=== PATIENT | female | born 1945 | race Caucasian/White ===

== ENCOUNTER → 2019-03-25 | Outpatient (CLI) | payer MEDICARE ==
[2019-03-25 14:34] LABS: HCT 36.5 % (34.0-46.0); HGB 12.3 gm/dL (11.4-16.0); MCH 29.5 pg (25.0-35.0); MCHC 33.8 g/dL (31.0-37.0); MCV 87.3 fL (80.0-100.0); Mean Platelet Volume 7.5; Platelet Count 222 k/uL (150-450); RBC 4.18 m/uL (3.80-5.40); RDW 14.6 % (11.5-15.5); WBC 5.3 k/uL (3.8-10.6)
[2019-03-25 14:40] LABS: African American GFR (CKD) >90 (>60 ml/min/1.73 sqM); Anion Gap 10 mmol/L; Blood Urea Nitrogen 22 mg/dL (7-17); Carbon Dioxide 25 mmol/L (22-30); Chloride 106 mmol/L (98-107); Potassium 4.7 mmol/L (3.5-5.1); Sodium 141 mmol/L (137-145)
== END | disposition home or self-care (01) ==
LOC: LABPAT 13:24
PROVIDERS: ATTEND Internal Medicine Interventional Cardiology
DX: Z01.812 Encounter for preprocedural laboratory examination (principal); Q21.1 Atrial septal defect
CPT/HCPCS: 36415; 80051; 82565; 84520; 85027

== ENCOUNTER 2019-04-13 09:53 | Day surgery (SDC) | payer MEDICARE, OTHER ==
[2019-04-06 09:29] VITALS: BMI 28.3
[~2019-04-13 09:53] MED LIST: SODIUM CHLORIDE 0.9% 1,000 ML in EMPTY BAG 1 BAG IV ONE
[2019-04-13] MEDS ORDERED: MIDAZOLAM (PF) 2 MG/2 ML VIAL IV ONE (13:15)
[2019-04-13] MEDS ORDERED: LIDOCAINE 1% INJ 10MG/ML (20 ML MDV) SQ ONE (13:16)
[2019-04-13] MEDS ORDERED: HEPARIN SODIUM 1,000 UN/ML (10ML VL) IV ONE (13:23)
[2019-04-13] MEDS ORDERED: ceFAZolin 1,000 MG VIAL IV ONE (13:36)
[2019-04-13] MEDS ORDERED: CLOPIDOGREL 75 MG TAB PO ONE (15:04)
[2019-04-13] MEDS ORDERED: ASPIRIN 325 MG TAB PO ONE (15:04)
[2019-04-13] MEDS ORDERED: TERIPARATIDE SQ SCH (15:15)
[2019-04-13] MEDS ORDERED: SODIUM CHLORIDE 0.9% 1,000 ML IV SCH (15:15)
[2019-04-13] MEDS: CARVEDILOL 6.25 MG TAB PO SCH (16:04)
--- NOTE | 2019-04-13 17:40 | LTR ---
DATE OF SERVICE: April 13, [address] Mesa: Ms. Audelia Lou underwent successful percutaneous closure of atrial septal defect with an excellent results and without any complication. I want to thank you for allowing us to participate in her care. Sincerely, SHAWNEE / IJN: [id number] /
--- NOTE | 2019-04-13 17:40 | CC ---
CARDIAC CATHETERIZATION REPORT DATE OF SERVICE: April 13, 2019 PERFORMING PHYSICIAN: Danie Ko MD, shaker out. PROCEDURE PERFORMED: 1. Successful percutaneous closure of secundum atrial septal defect using 8 mm Amplatzer atrial septal occluder with excellent results and without any residual shunt. 2. Intracardiac echocardiogram imaging. 3. Right atrial angiogram. INDICATION: This is a 73-year-old female patient who was diagnosed recently with cardiomegaly on chest x-ray. Subsequently, she underwent an echocardiogram which revealed right heart enlargement. After that, the patient did undergo a transesophageal echocardiogram which revealed atrial septal defect with evidence of bidirectional shunt. Because of that, she was scheduled today to undergo an ASD closure. APPROACH: Right common femoral vein. COMPLICATION: None. SEDATION: Level of sedation: Moderate with a sedation length of 95 minutes. PROCEDURE DESCRIPTION: After obtaining an informed consent, the patient was brought to the cardiac orthodontic laboratory technician. The right common femoral vein was cannulated twice using micropuncture technique under ultrasound guidance, the micropuncture wire passed easily then I placed two 8-Micronesian sheaths in the right common femoral vein. At that point, anticoagulation was initiated using heparin and the patient was given weight-based heparin with continuous CT monitoring throughout the procedure. After that I did intracardiac echocardiogram imaging where the catheter was advanced under fluoroscopy guidance from the right common femoral vein all the way to the right atrium where I did interrogate the interatrial septum using color-flow Doppler. After that I crossed the ASD using 035 J-wire with multipurpose catheter. The wire was advanced all the way to the left upper pulmonary vein. After that, I did exchange my 0.035 wire into an Amplatzer stiff wire using the multipurpose catheter. After that, I did balloon the interatrial septum to assess the size of the device, which was about 5 mm. Because of that I decided to place 8 mm device. The device was prepped under saline carefully to eliminate every bubble and after that the I did exchange my short 8-Micronesian sheath into the Shuttle sheath over and where the sheath was advanced all the way across the interatrial septum into the left atrium. After that, the wire and dilator of the sheath were removed. After that, I did deploy the atrial septal device where I deployed initially the left atrial occluder and after that, the right atrial occluder. After interrogated the device using color- flow Doppler with also doing pulling on the cable to make sure the device is still, I did decide to release the device. The device was released under fluoroscopy guidance. I did interrogate the device again with color-flow Doppler and there was no residual shunt. The procedure was completed without any complication. POSTPROCEDURE MANAGEMENT: 1. Dual anti-platelet therapy. 2. Risk factors modifications. 3. Follow up with the patient. SHAWNEE / ABIGAIL: [id number] /
[2019-04-13] MEDS: FAMOTIDINE 20 MG TAB PO SCH (20:04)
[2019-04-13] MEDS ORDERED: OXYBUTYNIN XL 5 MG TAB.ER.24 PO SCH (21:00)
[2019-04-13] MEDS ORDERED: PRAVASTATIN SODIUM 20 MG TAB PO SCH (21:00)
[2019-04-13] MEDS ORDERED: CARVEDILOL 6.25 MG TAB PO SCH (21:00)
[2019-04-14] MEDS ORDERED: LEVOTHYROXINE 75 MCG TAB PO SCH (06:30)
[2019-04-14] MEDS: CARVEDILOL 6.25 MG TAB PO SCH (06:40)
[2019-04-14 08:30] LABS: ALT 10 U/L (9-52); AST 21 U/L (14-36); African American GFR (CKD) >90 (>60 ml/min/1.73 sqM); Albumin 3.8 g/dL (3.5-5.0); Alkaline Phosphatase 79 U/L (38-126); Anion Gap 8 mmol/L; Blood Urea Nitrogen 20 mg/dL (7-17); Carbon Dioxide 26 mmol/L (22-30); Chloride 104 mmol/L (98-107); Glucose 162 mg/dL (74-99); Potassium 4.5 mmol/L (3.5-5.1); Sodium 138 mmol/L (137-145); Total Bilirubin 0.4 mg/dL (0.2-1.3); Total Protein 6.9 g/dL (6.3-8.2)
[2019-04-14] MEDS: FAMOTIDINE 20 MG TAB PO SCH (08:45)
[2019-04-14] MEDS ORDERED: CLOPIDOGREL 75 MG TAB PO SCH (09:00)
[2019-04-14] MEDS ORDERED: CALCIUM CARB-VIT D 500MG-200UN 1 EACH TAB PO SCH (09:00)
[2019-04-14] MEDS ORDERED: MULTIVITAMINS, THERA 1 EACH TAB PO SCH (09:00)
[2019-04-14] MEDS ORDERED: ASPIRIN 325 MG TAB PO SCH (09:00)
[2019-04-14] MEDS ORDERED: VIT A,C & E-LUTEIN-MINERALS 1 EACH TAB PO SCH (09:00)
[2019-04-14 09:49] VITALS: BP 148/78; PULSE 70; RESP 20; TEMP 98.5
--- NOTE | 2019-04-14 11:16 | DS ---
DISCHARGE SUMMARY ADMISSION DATE: 04/13/2019 DISCHARGE DATE: 04/14/2019 BRIEF HISTORY: This is a 73-year-old female patient who was diagnosed recently with secondary atrial septal defect and underwent successful percutaneous closure of atrial septal defect using Amplatzer device with good results and without any residual shunt. The patient is going to be discharged home on dual anti-platelet therapy and I will follow up with the patient in the office in a week. She underwent today an echocardiogram which revealed stable device. MMODL / IJN: [id number] /
--- NOTE | 2019-04-14 13:01 | XR ---
EXAMINATION TYPE: XR chest 2V DATE OF EXAM: 04/14/2019 COMPARISON: NONE HISTORY: Status post atrial septal defect repair TECHNIQUE: Frontal and lateral views of the chest are obtained. FINDINGS: There is no focal air space opacity, pleural effusion, or pneumothorax seen. The cardiac silhouette size is markedly for atrial septal defect repair device, heart is borderline increased in size. The osseous structures are intact. Overlying cardiac leads. IMPRESSION: Borderline cardiac size. Postprocedural changes.
== END 2019-04-14 11:00 | disposition home or self-care (01) ==
LOC: CATHCVL 09:53 → 3SCARD 16:12 → CATHCVL 04-14 11:00
PROVIDERS: ATTEND Internal Medicine Interventional Cardiology
DX: Q21.1 Atrial septal defect (principal)
CPT/HCPCS: 93580; 93306; 86900; 86901; 80053; 86850; 71046; C1769 ×6; C1817; C1894; J0690; J2001; J1644; J2250

== ENCOUNTER → 2021-07-15 | Outpatient (CLI) | payer MEDICARE ==
[2021-07-15 19:28] LABS: HCT 41.2 % (37.2-46.3); HGB 13.2 g/dL (12.0-15.0); MCH 29.5 pg (27.0-32.0); Mean Platelet Volume 10.2 fL (9.5-12.2); Platelet Count 229 X 10*3/uL (140-440); RBC 4.48 X 10*6/uL (4.10-5.20); RDW 13.3 % (11.5-14.5); WBC 6.03 X 10*3/uL (4.50-10.00)
[2021-07-15 21:05] LABS: African American GFR (CKD) 72.3 (60.0-200.0); Albumin 4.6 g/dL (3.8-4.9); Albumin/Globulin Ratio 1.51 (1.60-3.17); Anion Gap 12.3 mmol/L (4.00-12.00); BUN/Creat Ratio 24.41 Ratio (12.00-20.00); Blood Urea Nitrogen 21.9 mg/dL (9.0-27.0); Calcium 10.9 mg/dL (8.7-10.3); Carbon Dioxide 26.6 mmol/L (21.6-31.8); Chol/HDL Ratio 2.64 Ratio; HDL Cholesterol 67.5 mg/dL (40.00-60.00); LDL Cholesterol,Calculated 86.1 mg/dL (0.0-131.0); Magnesium 1.9 mg/dL (1.5-2.4); Non-African American GFR(CKD) 62.4 (60.0-200.0); Total Bilirubin 0.3 mg/dL (0.30-1.20); Total Protein 7.6 g/dL (6.2-8.2); VLDL Calculation 24.4 mg/dL (5.00-40.00)
== END | disposition home or self-care (01) ==
LOC: LABWHC1 12:22
PROVIDERS: ATTEND Nurse Practitioner Adult Health
DX: I10 Essential (primary) hypertension (principal); R53.83 Other fatigue; E78.5 Hyperlipidemia, unspecified
CPT/HCPCS: 36415; 80053; 80061; 83735; 84443; 85027

== ENCOUNTER 2022-03-10 08:50 | Day surgery (SDC) | payer MEDICARE ==
[~2022-03-10 08:50] MED LIST changes: +ALPRAZolam 0.25 MG TAB PO PRN; +ALPRAZolam 0.5 MG TAB PO PRN; +ASPIRIN 325 MG TAB PO STA; +ATORVASTATIN 80 MG TAB PO STA; +HEPARIN SODIUM,PORCINE 10,000 UNIT in SODIUM CHLORIDE 0.9% 1,000 ML IRRIGATION PRN; +HEPARIN SODIUM,PORCINE 2,500 UNIT in SODIUM CHLORIDE 0.9% 250 ML IRRIGATION PRN; +NITROGLYCERIN SL TABS 0.4 MG TAB SUBLINGUAL PRN; -SODIUM CHLORIDE 0.9% 1,000 ML in EMPTY BAG 1 BAG IV ONE; +SODIUM CHLORIDE 0.9% 1,000 ML in EMPTY BAG 1 BAG IV SCH
[2022-03-10] MEDS ORDERED: SODIUM CHLORIDE 0.9% 1,000 ML IV ONE (09:04)
[2022-03-10 09:24] VITALS: TEMP 98.2
[2022-03-10 09:30] LABS: Basophils # (A) 0.1 k/uL (0-0.2); Basophils % (A) 1 %; Eosinophils # (A) 0.4 k/uL (0-0.7); Eosinophils % (A) 6 %; HCT 39.9 % (34.0-46.0); HGB 13.4 gm/dL (11.4-16.0); Lymphocytes # (A) 1.1 k/uL (1.0-4.8); Lymphocytes % (A) 18 %; MCH 31.3 pg (25.0-35.0); MCHC 33.5 g/dL (31.0-37.0); MCV 93.3 fL (80.0-100.0); Monocytes # (A) 0.4 k/uL (0-1.0); Monocytes % (A) 6 %; Neutrophils % (A) 66 %; Platelet Count 261 k/uL (150-450); RBC 4.27 m/uL (3.80-5.40); RDW 13.3 % (11.5-15.5); WBC 6.1 k/uL (3.8-10.6)
[2022-03-10 09:40] LABS: Potassium 4.2 mmol/L (3.5-5.1)
[2022-03-10 09:41] LABS: Calcium 9.6 mg/dL (8.4-10.2)
[2022-03-10] MEDS ORDERED: VERAPAMIL 2.5 MG/ML 2 ML AMP ONE (12:09)
[2022-03-10] MEDS ORDERED: LIDOCAINE 1% PF 10 MG/ML (5 ML AMP) SQ ONE (12:36)
[2022-03-10] MEDS ORDERED: MIDAZOLAM 2 MG/2 ML VIAL IV ONE (12:36)
[2022-03-10] MEDS ORDERED: HEPARIN SODIUM 1,000 UN/ML (10ML VL) IV ONE (12:44)
[2022-03-10] MEDS ORDERED: VERAPAMIL SYRINGE (5 MG/10 ML) INTRAARTER ONE (12:44)
[2022-03-10] MEDS ORDERED: IOPAMIDOL-370 125ML BTL INJ ONE (12:50)
[2022-03-10] MEDS ORDERED: RX INFO: IV CONTRAST WAS GIVEN 1 EACH MISC MISCELLANE PRN (12:56)
--- NOTE | 2022-03-10 12:59 | P.PCN ---
Date of Procedure: 03/10/22 Operative Findings: CARDIAC CATHETERIZATION PERFORMING PHYSICIAN: Danie Ko MD, RPVI PROCEDURE PERFORMED: 1. Selective right and left coronary angiogram 2. Left heart catheterization INDICATION: Chest discomfort and shortness of breath is a 76-year-old female patient one underwent myocardial perfusion imaging stress test showed reversible is COMPLICATION: None APPROACH: Right radial artery LEVEL OF SEDATION: Moderate with a sedation length of 18 minutes PROCEDURE DESCRIPTION: After obtaining an informed consent, the patient was brought to cardiac seed laboratory technician. Local anesthesia was performed using lidocaine subcutaneously. The right radial artery was cannulated using Seldinger technique, the guidewire passed easily, following that we advanced a 5-St Helenian sheath dilator assembly, the wire and dilator were removed and sheath was flushed. Following that, 2 mg of verapamil along with 5000 unit heparin were given. Selective right and left coronary angiogram using a 6-St Helenian JR4 and JL 3.5 catheters. Following that we did left heart catheterization using 6-St Helenian pigtail catheter. The procedure was completed there was no complication. SELECTIVE CORONARY ANGIOGRAM: The right coronary artery: Is a large caliber vessel and a dominant vessel. The mid RCA has eccentric lesion appeared to be in the range of 50%. Left main: His angiographically normal and short left main bifurcates into LCx and LAD The left circumflex: Is a large caliber vessel. Its and on dominant vessel. The LCx is angiographically normal and gives rise into the first and second obtuse marginal branches both appeared to be angiographically normal. The left anterior descending artery: The LAD has mild disease in the midportion by the bifurcation of a large diagonal branch. The LAD does not reach the apex. Gives rises into a large diagonal branch which seems to be angiographically normal HEMODYNAMICS: The LVEDP was 20-22 mmHg with no significant gradient across aortic CONCLUSION: 1. Intermediate disease involving the mid RCA 2. Elevated left-sided filling pressure POSTPROCEDURE MANAGEMENT: Medical treatment and follow-up with the patient
[2022-03-10] MEDS ORDERED: SODIUM CHLORIDE 0.9% 1,000 ML IV SCH (13:00)
[2022-03-10 15:14] VITALS: RESP 16
[2022-03-10 17:14] VITALS: BP 143/70; PULSE 62
== END 2022-03-10 17:46 | disposition home or self-care (01) ==
LOC: CATHCVL 08:50
PROVIDERS: ATTEND Internal Medicine Interventional Cardiology
DX: R07.89 Other chest pain (principal); R06.02 Shortness of breath; Z20.822 Contact with and (suspected) exposure to COVID-19
CPT/HCPCS: 93458; 80048; 85025; 87635; C1769; C1894; J2250; J2001; J1644; Q9967

== ENCOUNTER 2023-06-29 09:17 | Day surgery (SDC) | payer MEDICARE ==
[2023-06-24 13:21] VITALS: BMI 25.4
[~2023-06-29 09:17] MED LIST changes: +HEPARIN SODIUM,PORCINE (1 ML) 2,500 UNIT in SODIUM CHLORIDE 0.9% 250 ML IRRIGATION PRN; -HEPARIN SODIUM,PORCINE 2,500 UNIT in SODIUM CHLORIDE 0.9% 250 ML IRRIGATION PRN
[2023-06-29] MEDS ORDERED: SODIUM CHLORIDE 0.9% 1,000 ML IV ONE (09:29)
[2023-06-29] MEDS ORDERED: carvediloL 6.25 MG TAB PO SCH (10:00)
[2023-06-29 10:03] VITALS: RESP 16; TEMP 97.7
[2023-06-29 10:28] LABS: Basophils % (A) 1 %; Eosinophils # (A) 0.2 k/uL (0-0.7); Eosinophils % (A) 3 %; HCT 38.4 % (34.0-46.0); HGB 12.5 gm/dL (11.4-16.0); Lymphocytes # (A) 1.8 k/uL (1.0-4.8); Lymphocytes % (A) 29 %; MCH 30.9 pg (25.0-35.0); MCHC 32.5 g/dL (31.0-37.0); MCV 95.1 fL (80.0-100.0); Mean Platelet Volume 8.1; Monocytes # (A) 0.4 k/uL (0-1.0); Monocytes % (A) 7 %; Neutrophils # (A) 3.5 k/uL (1.3-7.7); Neutrophils % (A) 58 %; Platelet Count 225 k/uL (150-450); RBC 4.04 m/uL (3.80-5.40); RDW 13.1 % (11.5-15.5)
[2023-06-29 10:43] LABS: African American GFR (CKD) >90 (>60 ml/min/1.73 sqM); Anion Gap 8 mmol/L; Blood Urea Nitrogen 13 mg/dL (7-17); Calcium 9.4 mg/dL (8.4-10.2); Carbon Dioxide 27 mmol/L (22-30); Chloride 102 mmol/L (98-107); Glucose 96 mg/dL (74-99); Non-African American GFR(CKD) 84 (>60 ml/min/1.73 sqM); Potassium 4.3 mmol/L (3.5-5.1); Sodium 137 mmol/L (137-145)
[2023-06-29] MEDS ORDERED: LIDOCAINE 1% INJ 10MG/ML (20 ML MDV) ONE ×2 (11:57→11:59)
[2023-06-29] MEDS ORDERED: VERAPAMIL 2.5 MG/ML 2 ML AMP ONE (11:57)
[2023-06-29] MEDS ORDERED: MIDAZOLAM 2 MG/2 ML VIAL IVP ONE (12:32)
[2023-06-29] MEDS ORDERED: LIDOCAINE 1% INJ 10MG/ML (20 ML MDV) SQ ONE (12:32)
[2023-06-29] MEDS ORDERED: VERAPAMIL SYRINGE (5 MG/10 ML) INTRAARTER ONE (12:34)
[2023-06-29] MEDS ORDERED: HEPARIN SODIUM 1,000 UN/ML (10ML VL) IV ONE (12:37)
[2023-06-29] MEDS ORDERED: IOPAMIDOL-370 100ML BTL INJ ONE (12:45)
[2023-06-29] MEDS ORDERED: RX INFO: IV CONTRAST WAS GIVEN 1 EACH MISC MISCELLANE PRN (12:52)
--- NOTE | 2023-06-29 12:57 | P.PCN ---
Date of Procedure: 06/29/23 Operative Findings: CARDIAC CATHETERIZATION PERFORMING PHYSICIAN: Danie Ko MD, RPVI PROCEDURE PERFORMED: 1. Selective right and left coronary angiogram 2. Left heart catheterization 3. iFR of the RCA 4. Ultrasound guided access of the right radial artery INDICATION: Chest discomfort this 77-year-old female patient who is known to have CAD and multiple risk factors including hypertension and dyslipidemia COMPLICATION: None APPROACH: Right radial artery LEVEL OF SEDATION: Moderate with a sedation length of 12 minutes PROCEDURE DESCRIPTION: After obtaining an informed consent, the patient was brought to cardiac oil laboratory analyst. Local anesthesia was performed using lidocaine subcutaneously. The right radial artery was cannulated using Seldinger technique, the guidewire passed easily, following that we advanced a 5-Chilean sheath dilator assembly, the wire and dilator were removed and sheath was flushed. Following that, 2 mg of verapamil along with 5000 unit heparin were given. Selective right and left coronary angiogram using a 6-Chilean JR4 and JL 3.5 catheters. Following that we did left heart catheterization using 6-Chilean pigtail catheter. After that we did iFR of the RCA. After zeroing the Doppler wire and equalizing between the Doppler wire and guiding catheter I did engage the RCA using JR4 guiding catheter and wire the RCA using the Doppler wire. After that I did iFR of the RCA which came in to be nonischemic and 0.96. The procedure was completed was no complication. The procedure was completed there was no complication. SELECTIVE CORONARY ANGIOGRAM: The right coronary artery: Large caliber vessel and a dominant vessel. The mid RCA has intermediate lesion appeared to be in the range of 50%. Left main: Large caliber vessel. Its angiographically normal. Bifurcates into an LCx and LAD The left circumflex: Large caliber vessel nondominant vessel. The LCx is angiographically normal. Gives rise into an OM1 and OM 2 and both appeared to be angiographically normal The left anterior descending artery: Large caliber vessel. The LAD is angiographically normal. It gives rises into a diagonal branch which seems to be normal as well HEMODYNAMICS: The LVEDP was 18 mmHg was no significant gradient across aortic valve CONCLUSION: 1. Intermediate disease involving the mid RCA. iFR was not flow-limiting 0.96 2. Normal left coronary system 3. Elevated left-sided filling pressure POSTPROCEDURE MANAGEMENT: Medical treatment
[2023-06-29] MEDS ORDERED: SODIUM CHLORIDE 0.9% 1,000 ML IV SCH (13:00)
[2023-06-29 17:16] VITALS: BP 149/69; PULSE 69
== END 2023-06-29 16:56 | disposition home or self-care (01) ==
LOC: CATHCVL 09:17
PROVIDERS: ATTEND Internal Medicine Interventional Cardiology
DX: I25.10 Atherosclerotic heart disease of native coronary artery without angina pectoris (principal); I10 Essential (primary) hypertension; E78.5 Hyperlipidemia, unspecified; Q21.10 Atrial septal defect, unspecified; Z79.82 Long term (current) use of aspirin; Z79.899 Other long term (current) drug therapy
CPT/HCPCS: 93571; 93458; 80048; 85025; C1887; C1769 ×2; C1894; J2250; J2001; J1644; Q9967

== ENCOUNTER 2024-11-15 11:53 | Observation (INO) | payer MEDICARE ==
[2024-11-15] MEDS: IV FLUID CONTINUATION 1,000 ML IV ONE (12:10)
[2024-11-15] MEDS: DEXAMETHASONE SOD PHOSPHATE 4 MG/ML 1 ML VIAL IV ONE (12:43)
[2024-11-15] MEDS: ONDANSETRON 4 MG/2 ML VIAL IVP ONE (12:44)
[2024-11-15] MEDS: LACTATED RINGERS 1,000 ML IV SCH (12:44)
[2024-11-15] MEDS ORDERED: NALOXONE 0.4 MG/ML 1 ML VIAL IV PRN (12:45)
[2024-11-15] MEDS ORDERED: HYDROmorphone 0.5 MG/0.5 ML SYRINGE IVP PRN ×3 (12:45)
[2024-11-15] MEDS ORDERED: ONDANSETRON 4 MG/2 ML VIAL IVP PRN (12:45)
[2024-11-15] MEDS ORDERED: MAGNESIUM HYDROXIDE 2,400 MG/30 ML CUP PO PRN (12:45)
[2024-11-15] MEDS ORDERED: SUCCINYLCHOLINE CHLORIDE 200 MG/10 ML VIAL IV ONE (13:07)
[2024-11-15] MEDS ORDERED: PROPOFOL 10 MG/ML 20 ML VIAL IV ONE (13:07)
[2024-11-15] MEDS ORDERED: GLYCOPYRROLATE 0.2 MG/ML 2 ML VIAL ONE (13:07)
[2024-11-15] MEDS ORDERED: LIDOCAINE 1% INJ 10MG/ML (20 ML MDV) ONE (13:07)
[2024-11-15] MEDS ORDERED: fentaNYL (PF) 50 MCG/ML 2 ML AMP ONE (13:07)
[2024-11-15] MEDS ORDERED: ROCURONIUM 10 MG/ML (5 ML VIAL) IV ONE (13:07)
[2024-11-15] MEDS ORDERED: NEOSTIGMINE 1 MG/ML 10 ML VIAL ONE (13:07)
[2024-11-15] MEDS: ceFAZolin 1,000 MG in SODIUM CHLORIDE 0.9% 1,000 ML IRRIGATION ONE (13:10)
--- NOTE | 2024-11-15 14:05 | P.OP ---
Date of Procedure: 11/15/24 Preoperative Diagnosis: Retained hardware left femur Postoperative Diagnosis: Retained hardware left femur Procedure(s) Performed: Removal intramedullary hema left femur Anesthesia: spinal Surgeon: Damian Velásquez Leather Parts Matcher #1: Blanca Marshall Estimated Blood Loss (ml): 50 Pathology: none sent Condition: stable Disposition: PACU Indications for Procedure: This is an 79-year-old female that had a retrograde intramedullary hema [place] [address] Ayon. She has subsequently developed significant hip arthritis and needs the hema removed in order to perform a total hip arthroplasty. Her discussing the surgical and nonsurgical treatment options at length, she wishes to proceed with removal of intramedullary hema. Formed consent was obtained. Operative Findings: The operative findings are consistent with a retained intramedullary hema left femur Description of Procedure: The patient was seen and evaluated in the preoperative area. The consent was reviewed and the operative site was marked with a skin marker. Patient was then brought to the operating room and given 2 g of Ancef by anesthesia. A general anesthetic was then performed by the anesthesia department. The left lower extremity and prepped and draped in usual sterile fashion. A universal timeout was then performed which confirmed the patient's name, surgical site, ALLERGIES, and consent. The procedure began by removing the proximal locking screw. The prior incision was used for the skin was incised sharply with a knife. Blunt dissection was carried down to the proximal locking screw was removed with the appropriate screwdriver without incident. Attention was then directed to the distal locking screw. Again the prior incision was used and the skin was incised sharply with a knife. The fascia was incised, with a knife sharply, and they head of the screw was readily visualized. The appropriate screwdriver was used to remove the distal locking screw. Next, attention was turned to the knee. The prior k nee incision was then used for the skin and subcutaneous tissue sharply incised. A mini parapatellar incision was made into the knee joint, and using fluoroscopy, the appropriate adapter was screwed into the distal hema. A sliver was then used to remove the hema without difficulty. Fluoroscopic x-rays confirmed removal of the hema. The incision's then irrigated, . The parapatellar incision was closed with 0 Vicryl, followed by 3-0 Vicryl and 3-0 Monocryl for the skin. This was repeated with the 2 smaller incisions as well. Sterile dressing was applied. The patient was then transferred to the recovery room in stable condition. The assistant operator MARIA Laureano was required due the complexity of the surgery and the need for skilled surgical processor.
--- NOTE | 2024-11-15 14:52 | FL ---
EXAMINATION TYPE: FL guidance operating room, XR femur LT DATE OF EXAM: 11/15/2024 CLINICAL HISTORY: Pain. Prior surgery. TECHNIQUE: Fluoroscopy. COMPARISON: None. FINDINGS: Fluoroscopic guidance was provided during hardware removal procedure performed by Dr. Linda watkins. A total of 30.3 seconds of fluoroscopic time was utilized during the procedure and 2 spot imag es was acquired. Total dose area product (DAP) in uGy*m?, mGy*cm? (or similar: 0.4137. Images acquired show lucency from prior fixating hardware in the proximal and distal femur. IMPRESSION: As Above. [facility], , 11/15/2024 2:50 PM
[2024-11-15] MEDS: HYDROmorphone 0.5 MG/0.5 ML SYRINGE IVP PRN (14:59)
[2024-11-15] MEDS: carvediloL 6.25 MG TAB PO SCH (17:03)
[2024-11-15] MEDS: HYDROcodone/APAP 5-325MG 1 EACH TAB PO PRN (17:04)
--- NOTE | 2024-11-15 18:10 | P.CONS ---
History of Present Illness - Reason for Consult Consult date: 11/15/24 Medical Management Requesting physician: Damian Velásquez - History of Present Illness History of Presenting Illness: Patient is a pleasant 79-year-old female with a past medical history of CAD, hypertension, hyperlipidemia, hypothyroidism, iron deficiency anemia, and osteoarthritis. She is currently admitted to orthopedic surgery team for retained hardware of left femur and is currently status post removal of intramedullary hema of left femur. Surgical procedure was completed by Dr. Velásquez. We were consulted for medical management throughout hospitalization. Patient seen and fully evaluated at bedside in room 472 shortly after returning from surgical procedure. Patient currently reports feeling dizziness/lightheadedness since completion of surgical procedure and mild pain in her left hip and knee. She denies having any headache, changes in vision or hearing, chest pain or palpitations, shortness of breath, cough or congestion, abdominal pain, nausea, vomiting, or experiencing any numbness or tingling in her extremities.. Patient is tolerating clear liquids at this time and denies having any postoperative nausea or vomiting. She states she has not been up since completion of surgical procedure and has not yet urinated. Review of systems: Pertinent positives and negatives as discussed in HPI, a complete review of systems was performed and all other systems are negative. Physical exam: Vital signs reviewed and stable. General: Nontoxic, no distress and appears stated age. Derm: Skin warm and dry, normal coloration for ethnicity. Head: Atraumatic, normocephalic and symmetric. Eyes: EOM's intact, no lid lag, and anicteric sclera Mouth: no lip lesions, mucus membranes moist Cardiovascular: regular rate and rhythm with normal S1S2, systolic murmur, positive posterior tibial pulses bilaterally, and cap refill < 2 seconds. Lungs: Respirations even, regular, and unlabored on room air. Lungs CTA bilaterally, no rhonchi, no rales, no wheezing, and no accessory muscle usage. Abdominal: soft, nontender to palpation, no guarding, no appreciable organomegaly Ext: No gross muscle atrophy, no edema, no contractures. Movement and sensation intact. Neuro: Speech clear, face symmetrical and CN II-XII grossly intact with no noted focal neuro deficits Psych: Alert and oriented to person, place, time, and situation. Appropriate and pleasant affect. Assessment and Plan of Care: Dizziness/lightheadedness Postoperative bradycardia -Likely adverse effect of anesthesia/pain medications. Will monitor for improvement. If dizziness persists, additional orders to be placed. -Will obtain EKG and place patient on continuous telemetry monitoring. -Maintain fall precautions. Status post removal of intramedullary hema of left femur secondary to retained hardware -Management per primary admitting orthopedic surgery team including DVT prophylaxis, pain management, wound/dressing management, weightbearing, and PT/OT. -Patient currently on DVT prophylaxis with aspirin 81 mg twice daily. History of CAD Hypertension Hyperlipidemia -Continue daily medication regimen with aspirin 81 mg daily, amlodipine 2.5 mg daily, carvedilol 6.25 mg twice daily, and pravastatin 20 mg nightly. Hypothyroidism -Continue daily medication regimen with levothyroxine 75 mcg daily. Iron deficiency anemia -Continue ferrous sulfate 325 mg daily. Data and imaging reviewed: -Reviewed preoperative clearance/H&P completed by patient's PCP. -Reviewed operative report. Vital signs reviewed. -Vital signs reviewed. Blood pressure 156/65, heart rate 54, respiratory rate 18, and SpO2 of 98% on 2 L. Thank you for allowing us to participate in the care of this pleasant patient. Do not hesitate to contact us with questions. Someone can be reached from the [facility] all hours of the day at [phone] or via [employer]. Patient was seen independently by Nurse Practitioner. This document was prepared using [employer] dictation software. Please allow for errors in toll line inspector while rare they do occur. Steve Chacon NP rendered care for this patient independently, reviewed the findings and plan as documented in the note above and agree with plan. I did not physically speak with or examine the patient on this date. Past Medical History Past Medical History: Hyperlipidemia, Hypertension, Osteoarthritis (OA), Thyroid Disorder Additional Past Medical History / Comment(s): OSTEOPOROSIS History of Any Multi-Drug Resistant Organisms: None Reported Past Surgical History: Appendectomy, Heart Catheterization, Hysterectomy, Tonsillectomy Additional Past Surgical History / Comment(s): Titanium rods bilateral femur due to fractures. d & c for missed ab Past Anesthesia/Blood Transfusion Reactions: Blood Transfusion Reaction Additional Past Anesthesia/Blood Transfusion Reaction / Comm: Warm and itchy with hives from transfusion. Smoking Status: Never smoker - Past Family History Father Family Medical History: Cancer Additional Family Medical History / Comment(s): Skin cancer. Sister(s) Family Medical History: Cancer Additional Family Medical History / Comment(s): Skin cancer. Medications and Allergies Home Medications Medication Instructions Recorded Confirmed Type Calcium Carbonate/Vitamin D3 1 each PO DAILY 01/24/15 11/15/24 History [Os-Daryn 500-Vit D3 5 Mcg (200 Iu)] Multivit-Min/FA/Lycopene/Lut 1 each PO DAILY 01/24/15 11/15/24 History [Centrum Silver Tablet] Pravastatin Sodium [Pravachol] 20 mg PO HS 01/24/15 11/15/24 History carvediloL [Coreg] 6.25 mg PO BID 01/24/15 11/15/24 History Levothyroxine Sodium [Synthroid] 75 mcg PO QAM 04/06/19 11/15/24 History Vit C/E/Zn/Coppr/Lutein/Zeaxan 1 each PO BID 04/06/19 11/15/24 History [Preservision Areds 2 Softgel] Aspirin [Adult Low Dose Aspirin EC] 81 mg PO DAILY 03/07/22 11/15/24 History Cholecalciferol [Vitamin D3 (25 1 tab PO DAILY 03/07/22 11/15/24 History Mcg = 1000 Iu)] Ferrous Sulfate [Iron (65 MG 1 tab PO DAILY 11/10/24 11/15/24 History Elemental)] amLODIPine BESYLATE 2.5 mg PO DAILY 11/10/24 11/15/24 History Aspirin 325 mg PO BID #60 tab 11/15/24 Rx HYDROcodone/APAP 5-325MG [[employer] 1 - 2 tab PO Q6HR PRN #32 tab 11/15/24 Rx 5-325] Sennosides [Senokot] 2 tab PO DAILY PRN #60 tablet 11/15/24 Rx Allergies Allergy/AdvReac Type Severity Reaction Status Date / Time No Known Allergies Allergy Verified 11/15/24 12:42 Physical Exam Vitals: Vital Signs Temp Pulse Resp BP Pulse Ox 11/15/24 15:45 57 L 18 176/74 99 11/15/24 15:17 55 L 14 168/72 100 11/15/24 15:02 55 L 14 162/69 100 11/15/24 14:47 63 14 175/72 99 11/15/24 14:32 96.9 F L 77 12 190/77 99 11/15/24 12:36 97.5 F L 70 16 180/69 95 Intake and Output 11/15/24 11/15/24 11/15/24 06:59 14:59 22:59 Intake Total 976 Output Total 50 Balance 926 Intake: IV 976 Output: Estimated Blood Loss 50 Other: Weight 62.6 kg 62.6 kg
[2024-11-15] MEDS ORDERED: ASPIRIN 325 MG TAB PO SCH (21:00)
[2024-11-15] MEDS: ASPIRIN 81 MG PO SCH (21:02)
[2024-11-15] MEDS: PRAVASTATIN SODIUM 20 MG TAB PO SCH (21:02)
[2024-11-15] MEDS: VIT A,C & E-LUTEIN-MINERALS 1 EACH TAB PO SCH (21:02)
[2024-11-15] MEDS: SENNOSIDES-DOCUSATE SODIUM 1 EACH TAB PO SCH (21:02)
[2024-11-15] MEDS: SODIUM CHLORIDE 0.9% 1,000 ML IV SCH (22:34)
[2024-11-16] MEDS: HYDROcodone/APAP 5-325MG 1 EACH TAB PO PRN (04:34)
[2024-11-16] MEDS: LEVOTHYROXINE 75 MCG TAB PO SCH (06:45)
[2024-11-16 08:29] LABS: Basophils # (A) 0.02 X 10*3/uL (0.00-0.10); Basophils % (A) 0.2 %; Eosinophils # (A) 0 X 10*3/uL (0.04-0.35); Eosinophils % (A) 0 %; HCT 31.4 % (37.2-46.3); HGB 10.4 g/dL (12.0-15.0); Lymphocytes # (A) 0.98 X 10*3/uL (0.90-5.00); Lymphocytes % (A) 10.6 %; MCH 30.3 pg (27.0-32.0); MCHC 33.1 g/dL (32.0-37.0); MCV 91.5 FL (80.0-97.0); Mean Platelet Volume 10.3 FL (9.5-12.2); Monocytes # (A) 0.51 X 10*3/uL (0.20-1.00); Monocytes % (A) 5.5 %; NRBC Per 100 WBC 0 X 10*3/uL (0.00-0.01); Neutrophils # (A) 7.73 X 10*3/uL (1.80-7.70); Neutrophils % (A) 83.4 %; Platelet Count 193 X 10*3/uL (140-440); RBC 3.43 X 10*6/uL (4.10-5.20); RDW 13.2 % (11.5-14.5); WBC 9.27 X 10*3/uL (4.50-10.00)
[2024-11-16] MEDS: CHOLECALCIFEROL 25 MCG (1000 IU) TABLET PO SCH (09:01)
[2024-11-16] MEDS: MULTIVITAMINS, THERA 1 EACH TAB PO SCH (09:01)
[2024-11-16] MEDS: CALCIUM CARB-VIT D 500 MG-5 MCG TAB PO SCH (09:02)
[2024-11-16] MEDS: amLODIPine 2.5 MG TAB PO SCH (09:02)
[2024-11-16] MEDS: FERROUS SULFATE 325 MG TAB PO SCH (09:02)
[2024-11-16 09:06] LABS: BUN/Creat Ratio 23.75 Ratio (12.00-20.00); Calcium 8.8 mg/dL (8.7-10.3); Carbon Dioxide 25.4 mmol/L (21.6-31.8); Chloride 100 mmol/L (96-109); Glucose 139 mg/dL (70-110); Magnesium 1.7 mg/dL (1.5-2.4); Potassium 4.4 mmol/L (3.5-5.5); Sodium 134 mmol/L (135-145)
--- NOTE | 2024-11-16 10:30 | P.DS ---
Providers Expected date of discharge: 11/16/24 Attending physician: Damian Velásquez Consults: 11/15/24 12:45 Consult Physician Routine Consulting Provider: Klarissa Fernandez Consult Reason/Comments: medical management Do you want consulting provider notified?: Yes 11/16/24 08:41 Consult Physician Routine Consulting Provider: Abiodun Dhillon Consult Reason/Comments: dizziness, LBBB Do you want consulting provider notified?: Yes Primary care physician: Dawit Mesa - Discharge Diagnosis(es) (1) S/P hardware removal Current Visit: Yes Status: Acute Hospital Course: This is an 79-year-old female who underwent previous placement of a retrograde intramedullary hema in 2011. The patient now has significant arthritis in the left hip and requires the hema to be removed before she can have a total hip arthroplasty. The patient presented for evaluation as an outpatient. After discussion and consideration patient elects to proceed with removal of intramedullary hema left femur. The patient is seen preoperatively by Dr. Velásquez and medically cleared for surgery by their primary care physician. Patient is admitted to [facility] on 11/15/2024 for removal of intramedullary hema left femur. The procedure is performed without complication or sequelae. The patient is doing well postoperatively. Labs and vital signs are stable on day of discharge. On day of discharge patient's incisions are healing well. There is minimal erythema. There is no active drainage noted at this time. There is minimal soft tissue swelling to the knee. Patient has full foot and ankle motion without difficulty or pain. Calf is soft and nontender to palpation. Neurovascular status to the left lower extremity is intact. Patient is discharged home in good condition. Please see med rec for accurate list of home medications. Plan - Discharge Summary Discharge Rx Participant: No New Discharge Prescriptions: New Aspirin 325 mg PO BID #60 tab Sennosides [Senokot] 2 tab PO DAILY PRN #60 tablet PRN Reason: Constipation HYDROcodone/APAP 5-325MG [[place] 5-325] 1 - 2 tab PO Q6HR PRN #32 tab PRN Reason: Pain No Action Pravastatin Sodium [Pravachol] 20 mg PO HS carvediloL [Coreg] 6.25 mg PO BID Multivit-Min/FA/Lycopene/Lut [Centrum Silver Tablet] 1 each PO DAILY Calcium Carbonate/Vitamin D3 [Os-Daryn 500-Vit D3 5 Mcg (200 Iu)] 1 each PO DAILY Levothyroxine Sodium [Synthroid] 75 mcg PO QAM Vit C/E/Zn/Coppr/Lutein/Zeaxan [Preservision Areds 2 Softgel] 1 each PO BID Aspirin [Adult Low Dose Aspirin EC] 81 mg PO DAILY Cholecalciferol [Vitamin D3 (25 Mcg = 1000 Iu)] 1 tab PO DAILY amLODIPine BESYLATE 2.5 mg PO DAILY Ferrous Sulfate [Iron (65 MG Elemental)] 1 tab PO DAILY Discharge Medication List Calcium Carbonate/Vitamin D3 [Os-Daryn 500-Vit D3 5 Mcg (200 Iu)] 1 each PO DAILY 01/24/15 [History] Multivit-Min/FA/Lycopene/Lut [Centrum Silver Tablet] 1 each PO DAILY 01/24/15 [History] Pravastatin Sodium [Pravachol] 20 mg PO HS 01/24/15 [History] carvediloL [Coreg] 6.25 mg PO BID 01/24/15 [History] Levothyroxine Sodium [Synthroid] 75 mcg PO QAM 04/06/19 [History] Vit C/E/Zn/Coppr/Lutein/Zeaxan [Preservision Areds 2 Softgel] 1 each PO BID 03/21 04/08 [History] Aspirin [Adult Low Dose Aspirin EC] 81 mg PO DAILY 03/07/22 [History] Cholecalciferol [Vitamin D3 (25 Mcg = 1000 Iu)] 1 tab PO DAILY 03/07/22 [History] Ferrous Sulfate [Iron (65 MG Elemental)] 1 tab PO DAILY 11/10/24 [History] amLODIPine BESYLATE 2.5 mg PO DAILY 11/10/24 [History] Aspirin 325 mg PO BID #60 tab 11/15/24 [Rx] HYDROcodone/APAP 5-325MG [[place] 5-325] 1 - 2 tab PO Q6HR PRN #32 tab 11/15/24 [Rx] Sennosides [Senokot] 2 tab PO DAILY PRN #60 tablet 11/15/24 [Rx] Follow up Appointment(s)/Referral(s): Damian Velásquez DO [Doctor of Osteopathic Medicine] - 2 Weeks Activity/Diet/Wound Care/Special Instructions: Weightbearing as tolerated with walker. Leave dressing intact. Dressing may be removed by home care nurse or by patient in 7 days. Then change dressing twice daily until follow up. May shower with initial dressing intact and after removal. If dressing become saturated, please remove. Please take aspirin 81mg twice daily for 30 days to prevent blood clots. Recommend use of compression stockings daily until follow up to help prevent swelling and blood clots. May remove at night before sleeping. Please follow-up with [facility] in 2 weeks and call with any questions or concerns, . Discharge Disposition: HOME WITH HOME HEALTH SERVICES
[2024-11-16 10:57] LABS: NT-Pro-B-Type Natriuretic Pept 643 pg/mL
--- NOTE | 2024-11-16 11:43 | P.CRDCN ---
History of Present Illness History of present illness: HISTORY OF PRESENT ILLNESS: This is a 79-year-old female with a past medical history significant for coronary artery disease, hypertension, hyperlipidemia, valvular heart disease, and ASD status post percutaneous closure device. Patient follows in the office with Dr. Ko. We have been asked to see the patient in consultation for dizziness and left bundle branch block. Patient examined at the bedside. Patient is status post removal of intramedullary hema of the left femur. Postop day #1. Patient states she was having dizziness yesterday while laying in the bed after she returned to her room following surgery. She denied any chest pain or pressure. This morning the patient states she felt a little bit dizzy this morning but states it has since resolved. She continues to deny any chest pain or pressure. Denies any shortness of breath. Denies any lightheadedness. Denies any palpitations. DIAGNOSTICS: - EKG reveals sinus mechanism with left bundle branch block. Left bundle branch block appears new compared to EKG from 2019. - Laboratory data: WBC 9.27. Hemoglobin 10.4. Platelet count 193. Sodium 134. Potassium 4.4. BUN 19. Creatinine 0.8. Troponin negative x 1. proBNP 643. TSH 0.195. Free T4 1.41. - Current home cardiac medications include carvedilol 6.25 mg twice a day, amlodipine 2.5 mg daily, pravastatin 20 mg at night, aspirin 81 mg daily. - Most recent echocardiogram obtained in June 2024 revealed ejection fraction 50%, moderate to severe MR, moderate pulmonary hypertension, moderate TR, moderate AR - Cardiac catheterization history: June 2023 revealing intermediate disease involving the mid RCA. iFR was not flow-limiting at 0.96. Normal left coronary system. Elevated left-sided filling pressures. REVIEW OF SYSTEMS: At the time of my exam: CONSTITUTIONAL: Denies fever or chills. HEENT: Denies blurred vision, vision changes, or eye pain. Denies hemoptysis CARDIOVASCULAR: Denies chest pain. Denies orthopnea. Denies PND. Denies palpitations RESPIRATORY: Denies shortness of breath. GASTROINTESTINAL: Denies abdominal pain. Denies nausea or vomiting. HEMATOLOGIC: Denies bleeding disorders. GENITOURINARY: Denies any blood in urine. SKIN: Denies pruitis. Denies rash. PHYSICAL EXAM: VITAL SIGNS: Reviewed. GENERAL: Well-developed in no acute distress. HEENT: Head is normocephalic. Pupils are equal, round. Sclerae anicteric. Mucous membranes of the mouth are moist. Neck supple. No JVD or thyromegaly LUNGS: Respirations even and unlabored. Lungs essentially clear to auscultation bilaterally. HEART: Regular rate and rhythm. S1 and S2 heard. Systolic murmur noted. ABDOMEN: Soft. Nondistended. Nontender. EXTREMITIES: Normal range of motion. No clubbing or cyanosis. Peripheral pulses intact. No lower extremity edema NEUROLOGIC: Awake and alert. Oriented x 3. ASSESSMENT: Status post removal of intramedullary hema of left femur Postoperative dizziness Left bundle branch block, new from 2019, however exact duration unknown Coronary artery disease with intermediate disease involving the mid RCA Hypertension Hyperlipidemia Valvular heart disease including moderate to severe MR, moderate TR, moderate AR Moderate pulmonary hypertension History of ASD status post percutaneous closure device PLAN: Obtain 2D echo to assess cardiac structure and function Repeat EKG Troponin obtained this morning negative Continue telemetry monitoring Patient is currently stable from a cardiac perspective Further recommendations pending patient course Nurse practitioner note has been reviewed by physician. Signing provider agrees with the documented findings, assessment, and plan of care documented by [facility] [employer] as a scribe. Past Medical History Past Medical History: Hyperlipidemia, Hypertension, Osteoarthritis (OA), Thyroid Disorder Additional Past Medical History / Comment(s): OSTEOPOROSIS History of Any Multi-Drug Resistant Organisms: None Reported Past Surgical History: Appendectomy, Heart Catheterization, Hysterectomy, Tonsillectomy Additional Past Surgical History / Comment(s): Titanium rods bilateral femur due to fractures. d & c for missed ab Past Anesthesia/Blood Transfusion Reactions: Blood Transfusion Reaction Additional Past Anesthesia/Blood Transfusion Reaction / Comment(s): Warm and itchy with hives from transfusion. Smoking Status: Never smoker - Past Family History Father Family Medical History: Cancer Additional Family Medical History / Comment(s): Skin cancer. Sister(s) Family Medical History: Cancer Additional Family Medical History / Comment(s): Skin cancer. Medications and Allergies Home Medications Medication Instructions Recorded Confirmed Type Calcium Carbonate/Vitamin D3 1 each PO DAILY 01/24/15 11/15/24 History [Os-Daryn 500-Vit D3 5 Mcg (200 Iu)] Multivit-Min/FA/Lycopene/Lut 1 each PO DAILY 01/24/15 11/15/24 History [Centrum Silver Tablet] Pravastatin Sodium [Pravachol] 20 mg PO HS 01/24/15 11/15/24 History carvediloL [Coreg] 6.25 mg PO BID 01/24/15 11/15/24 History Levothyroxine Sodium [Synthroid] 75 mcg PO QAM 04/06/19 11/15/24 History Vit C/E/Zn/Coppr/Lutein/Zeaxan 1 each PO BID 04/06/19 11/15/24 History [Preservision Areds 2 Softgel] Aspirin [Adult Low Dose Aspirin EC] 81 mg PO DAILY 03/07/22 11/15/24 History Cholecalciferol [Vitamin D3 (25 1 tab PO DAILY 03/07/22 11/15/24 History Mcg = 1000 Iu)] Ferrous Sulfate [Iron (65 MG 1 tab PO DAILY 11/10/24 11/15/24 History Elemental)] amLODIPine BESYLATE 2.5 mg PO DAILY 11/10/24 11/15/24 History Aspirin 325 mg PO BID #60 tab 11/15/24 Rx HYDROcodone/APAP 5-325MG [Sandy 1 - 2 tab PO Q6HR PRN #32 tab 11/15/24 Rx 5-325] Sennosides [Senokot] 2 tab PO DAILY PRN #60 tablet 11/15/24 Rx Allergies Allergy/AdvReac Type Severity Reaction Status Date / Time No Known Allergies Allergy Verified 11/15/24 12:42 Physical Exam Vitals: Vital Signs Temp Pulse Resp BP BP Pulse Ox 11/16/24 09:02 16 11/16/24 07:06 98.0 F 79 16 129/65 94 L 11/16/24 06:41 77 121/64 95 11/16/24 01:40 98.0 F 76 15 118/62 97 11/15/24 19:33 97.6 F 70 17 116/69 97 11/15/24 17:10 60 153/65 99 11/15/24 16:54 68 150/74 98 11/15/24 16:39 53 L 150/74 99 11/15/24 16:24 60 154/75 99 11/15/24 16:09 54 L 156/65 98 11/15/24 15:54 59 L 167/72 98 11/15/24 15:45 57 L 18 176/74 99 11/15/24 15:17 55 L 14 168/72 100 11/15/24 15:02 55 L 14 162/69 100 11/15/24 14:47 63 14 175/72 99 11/15/24 14:32 96.9 F L 77 12 190/77 99 11/15/24 12:36 97.5 F L 70 16 180/69 95 Intake and Output 11/15/24 11/16/24 11/16/24 22:59 06:59 14:59 Output Total 450 850 Balance -450 -850 Output: Urine 450 850 Straight 450 850 Other: # Voids 1 Weight 62.6 kg Results 11/16/24 03:28 11/16/24 03:28 Cardiac Enzymes 11/16/24 Range/Units 08:54 Troponin I <0.012 (0.000-0.034) ng/mL CBC 11/16/24 Range/Units 03:28 WBC 9.27 (4.50-10.00) X 10*3/uL RBC 3.43 L (4.10-5.20) X 10*6/uL Hgb 10.4 L (12.0-15.0) g/dL Hct 31.4 L (37.2-46.3) % Plt Count 193 (140-440) X 10*3/uL Comprehensive Metabolic Panel 11/16/24 Range/Units 03:28 Sodium 134 L (135-145) mmol/L Potassium 4.4 (3.5-5.5) mmol/L Chloride 100 (96-109) mmol/L Carbon Dioxide 25.4 (21.6-31.8) mmol/L BUN 19.0 (9.0-27.0) mg/dL Creatinine 0.8 (0.6-1.5) mg/dL Glucose 139 H (70-110) mg/dL Calcium 8.8 (8.7-10.3) mg/dL Current Medications Generic Name Dose Route Start Last Admin Trade Name Freq PRN Reason Stop Dose Admin Hydrocodone Bitart/Acetaminophen 1 each 11/15/24 12:45 11/15/24 22:35 Hydrocodone/Apap 5-325mg 1 Each Tab PO 12/15/24 12:44 1 each Q6HR PRN Administration Pain Scale 1 to 5 Hydrocodone Bitart/Acetaminophen 2 each 11/15/24 12:45 11/16/24 09:38 Hydrocodone/Apap 5-325mg 1 Each Tab PO 12/15/24 12:44 2 each Q6HR PRN Administration Pain Scale 6 to 10 Amlodipine Besylate 2.5 mg 11/16/24 09:00 11/16/24 09:02 Amlodipine 2.5 Mg Tab PO 2.5 mg DAILY MANDI Administration Aspirin 81 mg 11/15/24 21:00 11/16/24 09:01 Aspirin 81 Mg PO 12/15/24 20:59 81 mg BID MANDI Administration Calcium Carbonate 1 each 11/16/24 09:00 11/16/24 09:02 Calcium Carb-Vit D 500 Mg-5 Mcg Tab PO 1 each DAILY MANDI Administration Carvedilol 6.25 mg 11/15/24 17:30 11/16/24 06:45 Carvedilol 6.25 Mg Tab PO 6.25 mg AC-BID MANDI Administration Cholecalciferol 25 mcg 11/16/24 09:00 11/16/24 09:01 Cholecalciferol 25 Mcg (1000 Iu) Tablet PO 25 mcg DAILY MANDI Administration Ferrous Sulfate 325 mg 11/16/24 09:00 11/16/24 09:02 Ferrous Sulfate 325 Mg Tab PO 325 mg DAILY MANDI Administration Hydromorphone HCl 0.125 mg 11/15/24 12:45 Hydromorphone 0.5 Mg/0.5 Ml Syringe IVP 12/15/24 12:44 Q3HR PRN Pain Scale 1 to 3 Hydromorphone HCl 0.5 mg 11/15/24 12:45 Hydromorphone 0.5 Mg/0.5 Ml Syringe IVP 12/15/24 12:44 Q3HR PRN Pain Scale 7 to 10 Hydromorphone HCl 0.25 mg 11/15/24 12:45 Hydromorphone 0.5 Mg/0.5 Ml Syringe IVP 12/15/24 12:44 Q3HR PRN Pain Scale 4 to 6 Lactated Ringer's 1,000 mls @ 20 mls/hr 11/15/24 05:55 11/16/24 06:40 Lactated Ringers IV 12/15/24 05:54 Not Given .Q24H MANDI Sodium Chloride 1,000 mls @ 70 mls/hr 11/15/24 12:45 11/16/24 05:08 Saline 0.9% IV 12/15/24 12:44 70 mls/hr .[id number] MANDI Administration Levothyroxine Sodium 75 mcg 11/16/24 06:30 11/16/24 06:45 Levothyroxine 75 Mcg Tab PO 75 mcg 0630 MANDI Administration Magnesium Hydroxide 2,400 mg 11/15/24 12:45 Magnesium Hydroxide 2,400 Mg/30 Ml Cup PO 12/15/24 12:44 DAILY PRN Constipation Multivitamins 1 each 11/16/24 09:00 11/16/24 09:01 Multivitamins, Thera 1 Each Tab PO 1 each DAILY MANDI Administration Multivitamins/Minerals 1 each 11/15/24 21:00 11/16/24 09:02 Vit A,C & Z-Kymiue-Vmkhfigl 1 Each Tab PO 1 each BID MANDI Administration Naloxone HCl 0.2 mg 11/15/24 12:45 Naloxone 0.4 Mg/Ml 1 Ml Vial IV 12/15/24 12:44 Q2M PRN Opioid Reversal Ondansetron HCl 4 mg 11/15/24 12:45 Ondansetron 4 Mg/2 Ml Vial IVP 12/15/24 12:44 Q8H PRN Nausea And Vomiting Pravastatin Sodium 20 mg 11/15/24 21:00 11/15/24 21:02 Pravastatin Sodium 20 Mg Tab PO 20 mg HS MANDI Administration Senna/Docusate Sodium 2 each 11/15/24 21:00 11/15/24 21:02 Sennosides-Docusate Sodium 1 Each Tab PO 12/15/24 20:59 2 each HS MANDI Administration Intake and Output 11/15/24 11/16/24 11/16/24 22:59 06:59 14:59 Output Total 450 850 Balance -450 -850 Output: Urine 450 850 Straight 450 850 Other: # Voids 1 Weight 62.6 kg 11/16/24 03:28 11/16/24 03:28
--- NOTE | 2024-11-16 12:56 | P.PN ---
Subjective Progress Note Date: 11/16/24 Hospital course: Patient is a pleasant 79-year-old female with a past medical history of CAD, hypertension, hyperlipidemia, hypothyroidism, iron deficiency anemia, and osteoarthritis. She is currently admitted to orthopedic surgery team for retained hardware of left femur and is currently status post removal of intramedullary hema of left femur. Surgical procedure was completed by Dr. Velásquez. We were consulted for medical management throughout hospitalization. Patient was reporting mild postoperative dizziness/lightheadedness and was placed on telemetry monitoring. EKG was completed and is showing normal sinus rhythm at 70 bpm with a left bundle branch block. Upon review of patient's presurgical clearance and previous EKGs completed at our facility patient has no noted history of left bundle branch block and denies knowing history of left bundle branch block. Order placed for a one-time measurement of troponin level and consult to cardiology. Discussed findings with bus and trolley inspecting dispatcher Dr. Dhillon. Physical exam: Patient seen and fully evaluated at bedside this morning. She reports persistent dizziness/lightheadedness she was experiencing after surgery has improved. She reports having a couple episodes of dizziness/lightheaded this this morning but reports at this moment she is feeling good. She does report mild to moderate postoperative pain throughout her left hip but otherwise denies any other complaints including chest pain, palpitations, shortness of breath, nausea, or vomiting. Patient did have episode of urinary retention requiring straight catheterization x 1. Vital signs reviewed and stable. General: Nontoxic, no distress and appears stated age. Derm: Skin warm and dry, normal coloration for ethnicity. Head: Atraumatic, normocephalic and symmetric. Eyes: EOM's intact, no lid lag, and anicteric sclera Mouth: no lip lesions, mucus membranes moist Cardiovascular: regular rate and rhythm with normal S1S2, systolic murmur, positive posterior tibial pulses bilaterally, and cap refill < 2 seconds. Lungs: Respirations even, regular, and unlabored on room air. Lungs CTA b ilaterally, no rhonchi, no rales, no wheezing, and no accessory muscle usage. Abdominal: soft, nontender to palpation, no guarding, no appreciable organomegaly Ext: No gross muscle atrophy, no edema, no contractures. Movement and sensation intact. Neuro: Speech clear, face symmetrical and CN II-XII grossly intact with no noted focal neuro deficits Psych: Alert and oriented to person, place, time, and situation. Appropriate and pleasant affect. Assessment and Plan of Care: Dizziness/lightheadedness Left bundle branch block, appears to be new finding -EKG was completed and is showing normal sinus rhythm at 70 bpm with a left bundle branch block. -Upon review of patient's presurgical clearance and previous EKGs completed at our facility patient has no noted history of left bundle branch block and denies knowing history of left bundle branch block. -Order placed for a one-time measurement of troponin level -Consult to cardiology. Discussed findings with bus and trolley inspecting dispatcher Dr. Dhillon and cardiac AUT[employer] ADJUDICATION SPECIALIST. -Patient to remain on continuous telemetry monitoring. -Echocardiogram to be completed Status post removal of intramedullary hema of left femur secondary to retained hardware -Management per primary admitting orthopedic surgery team including DVT prophylaxis, pain management, wound/dressing management, weightbearing, and PT/OT. -Patient currently on DVT prophylaxis with aspirin 81 mg twice daily. History of CAD Hypertension Hyperlipidemia -Continue daily medication regimen with aspirin 81 mg daily, amlodipine 2.5 mg daily, carvedilol 6.25 mg twice daily, and pravastatin 20 mg nightly. Hypothyroidism -Continue daily medication regimen with levothyroxine 75 mcg daily. Iron deficiency anemia -Continue ferrous sulfate 325 mg daily. Data and imaging reviewed: -EKG was completed and is showing normal sinus rhythm at 70 bpm with a left bundle branch block. -Postoperative labs reviewed. CBC showing stable normocytic anemia with hemoglobin of 10.4. BMP showing mild hyponatremia with sodium of 134, blood glucose of 139. Magnesium slightly low at 1.7, and TSH was low at 0.195 but normal free T4 of 1.41. -Vital signs reviewed. Blood pressure 129/65, heart rate 79, respiratory rate 16, temp 98.0 F, and SpO2 of 94% on 2 L. Thank you for allowing us to participate in the care of this pleasant patient. Do not hesitate to contact us with questions. Someone can be reached from the [facility] hospitalist group all hours of the day at [phone] or via [employer]. Patient was seen independently by Nurse Practitioner. This document was prepared using [employer] dictation software. Please allow for errors in sales secretary while rare they do occur. Steve Chacon NP rendered care for this patient independently, reviewed the findings and plan as documented in the note above and agree with plan. I did not physically speak with or examine the patient on this date. Objective - Vital Signs Vital signs: Vital Signs Temp 98.0 F 11/16/24 07:06 Pulse 77 11/16/24 06:41 Resp 16 11/16/24 07:06 BP 129/65 11/16/24 07:06 Pulse Ox 95 11/16/24 06:41 FiO2 Intake & Output 11/15/24 11/16/24 11/16/24 18:59 06:59 18:59 Intake Total 976 Output Total 50 1300 Balance 926 -1300 Weight 62.6 kg Intake: IV 976 Output: Urine 1300 Straight 1300 Estimated Blood Loss 50 Other: # Voids 1 - Labs CBC & Chem 7: 11/16/24 03:28 11/16/24 03:28 Labs: Abnormal Lab Results - Last 24 Hours (Table) 11/16/24 Range/Units 03:28 RBC 3.43 L (4.10-5.20) X 10*6/uL Hgb 10.4 L (12.0-15.0) g/dL Hct 31.4 L (37.2-46.3) % Neutrophils # 7.73 H (1.80-7.70) X 10*3/uL Eosinophils # 0 L (0.04-0.35) X 10*3/uL
[2024-11-16 15:28] LABS: Chol/HDL Ratio 2.57 Ratio; LDL Cholesterol,Calculated 71.7 mg/dL (0.0-131.0)
--- NOTE | 2024-11-17 09:51 | P.PN ---
Subjective HISTORY OF PRESENT ILLNESS: This is a 79-year-old female with a past medical history significant for coronary artery disease, hypertension, hyperlipidemia, valvular heart disease, and ASD status post percutaneous closure device. Patient follows in the office with Dr. Ko. We have been asked to see the patient in consultation for dizziness and left bundle branch block. Patient examined at the bedside. Patient is status post removal of intramedullary hema of the left femur. Postop day #1. Patient states she was having dizziness yesterday while laying in the bed after she returned to her room following surgery. She denied any chest pain or pressure. This morning the patient states she felt a little bit dizzy this morning but states it has since resolved. She continues to deny any chest pain or pressure. Denies any shortness of breath. Denies any lightheadedness. Denies any palpitations. DIAGNOSTICS: - EKG reveals sinus mechanism with left bundle branch block. Left bundle branch block appears new compared to EKG from 2019. - Laboratory data: WBC 9.27. Hemoglobin 10.4. Platelet count 193. Sodium 134. Potassium 4.4. BUN 19. Creatinine 0.8. Troponin negative x 1. proBNP 643. TSH 0.195. Free T4 1.41. - Current home cardiac medications include carvedilol 6.25 mg twice a day, amlodipine 2.5 mg daily, pravastatin 20 mg at night, aspirin 81 mg daily. - Most recent echocardiogram obtained in June 2024 revealed ejection fraction 50%, moderate to severe MR, moderate pulmonary hypertension, moderate TR, moderate AR - Cardiac catheterization history: June 2023 revealing intermediate disease involving the mid RCA. iFR was not flow-limiting at 0.96. Normal left coronary system. Elevated left-sided filling pressures. 11/17/2024 Patient examined this morning the bedside. Patient denies chest pain or pres sure. She denies shortness of breath. Denies dizziness or lightheadedness. Per Dr. Dhillon, 2D echo was read yesterday and is unremarkable. However there is an IT issue with final report crossing over into EMR. PHYSICAL EXAM: VITAL SIGNS: Reviewed. GENERAL: Well-developed in no acute distress. HEENT: Head is normocephalic. Pupils are equal, round. Sclerae anicteric. Mucous membranes of the mouth are moist. Neck supple. No JVD or thyromegaly LUNGS: Respirations even and unlabored. Lungs essentially clear to auscultation bilaterally. HEART: Regular rate and rhythm. S1 and S2 heard. Systolic murmur noted. ABDOMEN: Soft. Nondistended. Nontender. EXTREMITIES: Normal range of motion. No clubbing or cyanosis. Peripheral pulses intact. No lower extremity edema NEUROLOGIC: Awake and alert. Oriented x 3. ASSESSMENT: Status post removal of intramedullary hema of left femur Postoperative dizziness Left bundle branch block, new from 2019, however exact duration unknown Coronary artery disease with intermediate disease involving the mid RCA Hypertension Hyperlipidemia Valvular heart disease including moderate to severe MR, moderate TR, moderate AR Moderate pulmonary hypertension History of ASD status post percutaneous closure device PLAN: Per Dr. Dhillon, 2D echo was read yesterday and is unremarkable. However there is an IT issue with final report crossing over into EMR. Continue current cardiac medications including aspirin, pravastatin, amlodipine, and carvedilol Patient is stable for discharge today from a cardiac standpoint Recommend outpatient stress testing Patient to follow-up with Dr. Ko on an outpatient basis We will sign off. Please reconsult if needed. Nurse practitioner note has been reviewed by physician. Signing provider agrees with the documented findings, assessment, and plan of care documented by RELASTER as a scribe. Objective - Vital Signs Vital signs: Vital Signs Temp 99.7 F H 11/17/24 07:55 Pulse 86 11/17/24 07:55 Resp 15 11/17/24 08:00 BP 151/74 11/17/24 07:55 Pulse Ox 92 L 11/17/24 07:55 FiO2 Intake & Output 11/16/24 11/17/24 11/17/24 18:59 06:59 18:59 Output Total 1300 Balance -1300 Output: Urine 1300 Stool 0 Other: Voiding Method Indwelling Catheter Indwelling Catheter # Voids 3 1,800 # Bowel Movements 1 - Labs CBC & Chem 7: 11/16/24 03:28 11/16/24 03:28
--- NOTE | 2024-11-17 10:24 | CA ---
Transthoracic Echo Report Name: Audelia Lou Age: 79 Gender: F : 1945 Exam Date: 11/16/2024 10:27 Exam Location: [facility] Ht (in): 60 Wt (lb): 138 Ordering Physician: Berna Bruno Attending/Referring Phys: Diaz Ware MD Clothespin Machine Operator Gretta Rocha, JOYCE Procedure CPT: Indications: LV function, dizziness, LBBB, Other cardiomyopathies Cardiac Hx: Technical Quality: Fair Contrast 1: Total Dose (mL): Contrast 2: Total Dose (mL): MEASUREMENTS (Male / Female) Normal Values 2D ECHO LV Diastolic Diameter PLAX 3.4 cm 4.2 - 5.9 / 3.9 - 5.3 cm LV Systolic Diameter PLAX 2.4 cm IVS Diastolic Thickness 1.4 cm 0.6 - 1.0 / 0.6 - 0.9 cm LVPW Diastolic Thickness 1.1 cm 0.6 - 1.0 / 0.6 - 0.9 cm LV Relative Wall Thickness 0.7 RV Internal Dim ED PLAX 2.5 cm LA Systolic Diameter LX 3.8 cm 3.0 - 4.0 / 2.7 - 3.8 cm LV Diastolic Volume MOD BP 47.1 cm??? 67 - 155 / 56 - 104 cm??? LV Systolic Volume MOD BP 15.5 cm??? - 58 / 19 - 49 cm??? LV Ejection Fraction MOD BP 67.0 % >= 55 % LV Cardiac Index MOD BP 1225.1 cm???/min???m??? LV Diastolic Volume MOD 4C 39.9 cm??? LV Systolic Volume MOD 4C 15.0 cm??? LV Ejection Fraction MOD 4C 62.5 % LV Cardiac Index MOD 4C 968.2 cm???/min???m??? LV Diastolic Length 4C 6.1 cm LV Systolic Length 4C 5.7 cm LV Diastolic Volume MOD 2C 51.1 cm??? LV Systolic Volume MOD 2C 15.2 cm??? LV Ejection Fraction MOD 2C 70.3 % LV Cardiac Index MOD 2C 1396.5 cm???/min???m??? LV Diastolic Length 2C 6.7 cm LV Systolic Length 2C 5.3 cm LA Volume 30.9 cm??? 18 - 58 / 22 - 52 cm??? LA Volume Index 18.8 cm???/m??? 16 - 28 cm???/m??? M-MODE Aortic Root Diameter MM 3.0 cm LA Systolic Diameter MM 3.4 cm LA Ao Ratio MM 1.2 AV Cusp Separation MM 1.7 cm FINDINGS Left Ventricle Left ventricular ejection fraction is estimated at 55-60 %. Moderately increased septal wall thickness. Mildly increased posterior wall thickness. No obvious regional wall motion abnormalities. Left ventricular cavity size normal. Right Ventricle Normal right ventricular size and function. Right Atrium Normal right atrial size. Left Atrium Normal left atrial size. Mitral Valve Aortic Valve Tricuspid Valve Pulmonic Valve Pericardium No pericardial or pleural effusion. Aorta Normal size aortic root and proximal ascending aorta. CONCLUSIONS Limited echo Left ventricular ejection fraction is estimated at 55-60 %. No obvious regional wall motion abnormalities. Moderate septal hypertrophy Normal RV size and systolic function Previewed by: Dr Abiodun Dhillon (Electronically Signed) Final Date: 16 November 2024 12:24
--- NOTE | 2024-11-17 14:00 | P.PN ---
Subjective Progress Note Date: 11/17/24 This is an 79 year old female who is status post removal of intramedullary hema left femur. This is postoperative day #2. Patient is seen and evaluated at bedside today. Patient states that she has been able to ambulate and her pain is well-controlled. Patient states that she had a roldan catheter placed for urinary retention. Objective - Vital Signs Vital signs: Vital Signs Temp 99.7 F H 11/17/24 07:55 Pulse 86 11/17/24 07:55 Resp 15 11/17/24 08:00 BP 151/74 11/17/24 07:55 Pulse Ox 92 L 11/17/24 07:55 FiO2 Intake & Output 11/16/24 11/17/24 11/17/24 18:59 06:59 18:59 Output Total 1300 Balance -1300 Output: Urine 1300 Stool 0 Other: Voiding Method Indwelling Catheter Indwelling Catheter # Voids 3 1,800 # Bowel Movements 1 - Exam Vital signs are stable. Patient is in no acute distress and is alert and oriented 3. Calf is soft and nontender to palpation. Dressings are clean, dry, and intact. Patient has full foot and ankle motion without pain or difficulty. Sensation intact. Neurovascular status and circulatory status are intact. - Labs CBC & Chem 7: 11/16/24 03:28 11/16/24 03:28 Assessment and Plan Assessment: Status post removal of intramedullary hema left femur (1) S/P hardware removal Current Visit: Yes Status: Acute Code(s): Z98.890 - OTHER SPECIFIED POSTPROCEDURAL STATES SNOMED Code(s): 903518377 Plan: 1. Weight-bearing as tolerated with a walker. 2. Continue pain control. 3. Continue anticoagulation with aspirin. 4. Cardiology has evaluated and cleared the patient from a cardiac standpoint. 5. Appreciate input from internal medicine. 6. Anticipate discharge home later today or tomorrow once patient is cleared medically.
--- NOTE | 2024-11-17 14:28 | P.PN ---
Subjective Progress Note Date: 11/17/24 Subjective: Patient was seen and examined at bedside, feeling well, denies chest pain, shortness of breath Pertinent positives and negatives as discussed above, a complete review of systems was performed and all other systems are negative. Vitals Signs Reviewed. General: [nontoxic], [no distress], [appears at stated age] Derm: [warm], [dry] Head: [atraumatic], [normocephalic], [symmetric] Eyes: [EOMI], [no lid lag], [anicteric sclera] Mouth: [no lip lesion], [mucus membranes moist] Cardiovascular: [S1S2 reg], [murmur] Lungs: [CTA bilateral], [no rhonchi, no rales] , [no accessory muscle use] Abdominal: [soft], [ nontender to palpation], [no guarding], [no appreciable organomegaly] Ext: [no gross muscle atrophy], [no edema], [no contractures] Neuro: [ CN II-XI grossly intact], [no focal neuro deficits] Psych: [Alert], [oriented], [appropriate affect] Dizziness/lightheadedness Left bundle branch block, appears to be new finding -EKG was completed and is showing normal sinus rhythm at 70 bpm with a left bundle branch block., Repeat EKG showed LBBB again -Troponin negative -Consult to cardiology per TTE was unremarkable as per cardiology progress note, patient can continue cardiac medications and stable for discharge from cardiac standpoint. Recommended outpatient stress test and follow-up with Dr. Dempsey -Stable from IM standpoint for discharge Status post removal of intramedullary hema of left femur secondary to retained hardware -Management per primary admitting orthopedic surgery team including DVT prophylaxis, pain management, wound/dressing management, weightbearing, and PT/OT. -Patient currently on DVT prophylaxis with aspirin 81 mg twice daily. History of CAD Hypertension Hyperlipidemia -Continue daily medication regimen with aspirin 81 mg daily, amlodipine 2.5 mg daily, carvedilol 6.25 mg twice daily, and pravastatin 20 mg nightly. Hypothyroidism -Continue daily medication regimen with levothyroxine 75 mcg daily. Iron deficiency anemia -Continue ferrous sulfate 325 mg daily. Objective - Vital Signs Vital signs: Vital Signs Temp 99.7 F H 11/17/24 07:55 Pulse 86 11/17/24 07:55 Resp 15 11/17/24 08:00 BP 151/74 11/17/24 07:55 Pulse Ox 92 L 11/17/24 07:55 FiO2 Intake & Output 11/16/24 11/17/24 11/17/24 18:59 06:59 18:59 Output Total 1300 Balance -1300 Output: Urine 1300 Stool 0 Other: Voiding Method Indwelling Catheter Indwelling Catheter # Voids 3 1,800 # Bowel Movements 1 - Labs CBC & Chem 7: 11/16/24 03:28 11/16/24 03:28
--- NOTE | 2024-11-17 15:21 | P.DS ---
Providers Expected date of discharge: 11/17/24 Attending physician: Damian Velásquez Consults: 11/15/24 12:45 Consult Physician Routine Consulting Provider: Klarissa Fernandez Consult Reason/Comments: medical management Do you want consulting provider notified?: Yes Primary care physician: Dawit Mesa - Discharge Diagnosis(es) (1) S/P hardware removal Current Visit: Yes Status: Acute Hospital Course: This is an 79-year-old female who underwent previous placement of a retrograde intramedullary hema in 2011. The patient now has significant arthritis in the left hip and requires the hema to be removed before she can have a total hip arthroplasty. The patient presented for evaluation as an outpatient. After discussion and consideration patient elects to proceed with removal of intramedullary hema left femur. The patient is seen preoperatively by Dr. Velásquez and medically cleared for surgery by their primary care physician. Patient is admitted to [facility] on 11/15/2024 for removal of intramedullary hema left femur. The procedure is performed without complication or sequelae. The patient is doing well postoperatively. Patient had a cardiac evaluation during this admission due to dizziness and a new left bundle branch block. Patient had an ECHO done and was cleared from a cardiac standpoint. Labs and vital signs are stable on day of discharge. On day of discharge patient's incisions are healing well. There is minimal erythema. There is no active drainage noted at this time. There is minimal s oft tissue swelling to the knee. Patient has full foot and ankle motion without difficulty or pain. Calf is soft and nontender to palpation. Neurovascular status to the left lower extremity is intact. Patient is discharged home in good condition. Please see med rec for accurate list of home medications. Plan - Discharge Summary Discharge Rx Participant: No New Discharge Prescriptions: New Aspirin 325 mg PO BID #60 tab Sennosides [Senokot] 2 tab PO DAILY PRN #60 tablet PRN Reason: Constipation HYDROcodone/APAP 5-325MG [[place] 5-325] 1 - 2 tab PO Q6HR PRN #32 tab PRN Reason: Pain No Action Pravastatin Sodium [Pravachol] 20 mg PO HS carvediloL [Coreg] 6.25 mg PO BID Multivit-Min/FA/Lycopene/Lut [Centrum Silver Tablet] 1 each PO DAILY Calcium Carbonate/Vitamin D3 [Os-Daryn 500-Vit D3 5 Mcg (200 Iu)] 1 each PO DAILY Levothyroxine Sodium [Synthroid] 75 mcg PO QAM Vit C/E/Zn/Coppr/Lutein/Zeaxan [Preservision Areds 2 Softgel] 1 each PO BID Aspirin [Adult Low Dose Aspirin EC] 81 mg PO DAILY Cholecalciferol [Vitamin D3 (25 Mcg = 1000 Iu)] 1 tab PO DAILY amLODIPine BESYLATE 2.5 mg PO DAILY Ferrous Sulfate [Iron (65 MG Elemental)] 1 tab PO DAILY Discharge Medication List Calcium Carbonate/Vitamin D3 [Os-Daryn 500-Vit D3 5 Mcg (200 Iu)] 1 each PO DAILY 01/24/15 [History] Multivit-Min/FA/Lycopene/Lut [Centrum Silver Tablet] 1 each PO DAILY 01/24/15 [History] Pravastatin Sodium [Pravachol] 20 mg PO HS 01/24/15 [History] carvediloL [Coreg] 6.25 mg PO BID 01/24/15 [History] Levothyroxine Sodium [Synthroid] 75 mcg PO QAM 04/06/19 [History] Vit C/E/Zn/Coppr/Lutein/Zeaxan [Preservision Areds 2 Softgel] 1 each PO BID 04/06/19 [History] Aspirin [Adult Low Dose Aspirin EC] 81 mg PO DAILY 03/07/22 [History] Cholecalciferol [Vitamin D3 (25 Mcg = 1000 Iu)] 1 tab PO DAILY 03/07/22 [History] Ferrous Sulfate [Iron (65 MG Elemental)] 1 tab PO DAILY 11/10/24 [History] amLODIPine BESYLATE 2.5 mg PO DAILY 11/10/24 [History] Aspirin 325 mg PO BID #60 tab 11/15/24 [Rx] HYDROcodone/APAP 5-325MG [[place] 5-325] 1 - 2 tab PO Q6HR PRN #32 tab 11/15/24 [Rx] Sennosides [Senokot] 2 tab PO DAILY PRN #60 tablet 11/15/24 [Rx] Follow up Appointment(s)/Referral(s): Danie Ko MD [STAFF PHYSICIAN] - 1 Week Damian Velásquez DO [Doctor of Osteopathic Medicine] - 11/28/24 2:55 pm (With Eliezer) [facility] Visiting Nurse, [NON-STAFF] - As Needed Activity/Diet/Wound Care/Special Instructions: Weightbearing as tolerated with walker. Leave dressing intact. Dressing may be removed by home care nurse or by patient in 7 days. Then change dressing twice daily until follow up. May shower with initial dressing intact and after removal. If dressing become saturated, please remove. Please take aspirin 81mg twice daily for 30 days to prevent blood clots. Recommend use of compression stockings daily until follow up to help prevent swelling and blood clots. May remove at night before sleeping. Please follow-up with [facility] weeks and call with any questions or concerns, . Discharge Disposition: HOME WITH HOME HEALTH SERVICES
[2024-11-17 16:33] VITALS: BP 123/63; PULSE 81; RESP 16; TEMP 98.1
== END 2024-11-17 18:02 | disposition home health service (06) ==
LOC: OR 11:53 → 4SSUR 11:54 → INTOOBSV 11:54 → UNDOADMOB 11:54 → 4SSUR 12:45 → UNDODISIN 11-17 18:02
PROVIDERS: ADMIT Orthopaedic Surgery; ATTEND Orthopaedic Surgery
DX: T84.84XA Pain due to internal orthopedic prosthetic devices, implants and grafts, initial encounter (principal); M16.12 Unilateral primary osteoarthritis, left hip; I08.3 Combined rheumatic disorders of mitral, aortic and tricuspid valves; I27.20 Pulmonary hypertension, unspecified; D50.9 Iron deficiency anemia, unspecified; I44.7 Left bundle-branch block, unspecified; E03.9 Hypothyroidism, unspecified; E78.5 Hyperlipidemia, unspecified; I10 Essential (primary) hypertension; I25.10 Atherosclerotic heart disease of native coronary artery without angina pectoris; M81.0 Age-related osteoporosis without current pathological fracture; Z79.82 Long term (current) use of aspirin; Z79.890 Hormone replacement therapy; Z79.899 Other long term (current) drug therapy
CPT/HCPCS: 20680; 93308; 97116; 97161; 97530; 97166; 84439; 83880; 80061; 80048; 84443; 83735; 84484; 85025; 83036; 73552; G0378 ×3; J0330; J1100; J2710; J0690 ×3; J2405; J2003; J3010; J2704; J1171; J1596

== ENCOUNTER → 2025-03-01 | Outpatient (CLI) | payer MEDICARE ==
[2025-03-01 11:26] LABS: Prothrombin Time 11.4 sec (10.0-12.5)
[2025-03-01 16:24] LABS: ALT 15 U/L (8-44); AST 24 U/L (13-35); Albumin 4.3 g/dL (3.8-4.9); Albumin/Globulin Ratio 1.59 Ratio (1.60-3.17); Alkaline Phosphatase 65 U/L (41-126); Blood Urea Nitrogen 22.4 mg/dL (9.0-27.0); Calcium 9.2 mg/dL (8.7-10.3); Carbon Dioxide 23.3 mmol/L (21.6-31.8); Chloride 103 mmol/L (96-109); Globulin 2.7 g/dL (1.6-3.3); Glucose 98 mg/dL (70-110); Potassium 4.4 mmol/L (3.5-5.5); Sodium 138 mmol/L (135-145); T4, Free (Free Thyroxine) 1.62 ng/dL (0.80-1.80); Total Bilirubin 0.4 mg/dL (0.3-1.2)
[2025-03-01 16:41] LABS: NT-Pro-B-Type Natriuretic Pept 406 pg/mL (0-450)
== END | disposition home or self-care (01) ==
LOC: LABWHC1 10:09
PROVIDERS: ATTEND Orthopaedic Surgery
DX: Z01.812 Encounter for preprocedural laboratory examination (principal); Z22.322 Carrier or suspected carrier of Methicillin resistant Staphylococcus aureus; I50.9 Heart failure, unspecified; E03.9 Hypothyroidism, unspecified; M16.12 Unilateral primary osteoarthritis, left hip
CPT/HCPCS: 36415; 80053; 83880; 84439; 84443; 85610; 85730; 86850; 86900; 86901; 87070; 93005

== ENCOUNTER → 2025-03-02 | Outpatient (CLI) | payer MEDICARE ==
[2025-03-02 11:03] LABS: Basophils # (A) 0.06 10*3/uL (0.00-0.10); Basophils % (A) 0.9 %; Eosinophils # (A) 0.15 10*3/uL (0.04-0.35); Eosinophils % (A) 2.2 %; HCT 39.1 % (37.2-46.3); HGB 12.8 g/dL (12.0-15.0); Lymphocytes # (A) 1.21 10*3/uL (0.90-5.00); Lymphocytes % (A) 17.7 %; MCH 30.5 pg (27.0-32.0); MCHC 32.7 g/dL (32.0-37.0); MCV 93.1 fL (80.0-97.0); Mean Platelet Volume 9.7 fL (9.5-12.2); Monocytes # (A) 0.74 10*3/uL (0.20-1.00); Monocytes % (A) 10.9 %; Neutrophils # (A) 4.65 10*3/uL (1.80-7.70); Neutrophils % (A) 68.2 %; Platelet Count 180 10*3/uL (140-440); RDW 13.5 % (11.5-14.5); WBC 6.82 10*3/uL (4.50-10.00)
== END | disposition home or self-care (01) ==
LOC: LABWHC1 10:30
PROVIDERS: ATTEND Nurse Practitioner Adult Health
DX: Z01.812 Encounter for preprocedural laboratory examination (principal); M16.12 Unilateral primary osteoarthritis, left hip
CPT/HCPCS: 36415; 85025

== ENCOUNTER → 2025-03-13 | Outpatient (CLI) | payer MEDICARE ==
[2025-03-13 12:03] LABS: INR 1.1 (<1.2); Partial Thromboplastin Time 24.2 sec (22.0-30.0); Prothrombin Time 11.6 sec (10.0-12.5)
[2025-03-13 15:12] LABS: HCT 39.5 % (37.2-46.3); HGB 12.7 g/dL (12.0-15.0); MCH 29.4 pg (27.0-32.0); MCHC 32.2 g/dL (32.0-37.0); MCV 91.4 FL (80.0-97.0); Mean Platelet Volume 9.9 FL (9.5-12.2); NRBC Per 100 WBC 0 X 10*3/uL (0.00-0.01); Platelet Count 239 X 10*3/uL (140-440); RBC 4.32 X 10*6/uL (4.10-5.20); RDW 13.3 % (11.5-14.5); WBC 5.82 X 10*3/uL (4.50-10.00)
[2025-03-13 15:19] LABS: ALT 14 U/L (8-44); AST 23 U/L (13-35); Albumin 4.1 g/dL (3.8-4.9); Albumin/Globulin Ratio 1.28 Ratio (1.60-3.17); Alkaline Phosphatase 64 U/L (41-126); BUN/Creat Ratio 22.62 Ratio (12.00-20.00); Blood Urea Nitrogen 18.1 mg/dL (9.0-27.0); Calcium 9.6 mg/dL (8.7-10.3); Chloride 102 mmol/L (96-109); Globulin 3.2 g/dL (1.6-3.3); Glucose 99 mg/dL (70-110); Potassium 4.4 mmol/L (3.5-5.5); Sodium 138 mmol/L (135-145); Total Bilirubin 0.6 mg/dL (0.3-1.2); Total Protein 7.3 g/dL (6.2-8.2)
== END | disposition home or self-care (01) ==
LOC: LABPAT 10:35
PROVIDERS: ATTEND Orthopaedic Surgery
DX: Z01.812 Encounter for preprocedural laboratory examination (principal); M16.12 Unilateral primary osteoarthritis, left hip; I44.7 Left bundle-branch block, unspecified; I51.89 Other ill-defined heart diseases; Z22.322 Carrier or suspected carrier of Methicillin resistant Staphylococcus aureus; R94.31 Abnormal electrocardiogram [ECG] [EKG]
CPT/HCPCS: 80053; 85027; 85610; 85730; 86850; 86900; 86901; 87070; 93005

== ENCOUNTER 2025-03-21 09:43 | Day surgery (SDC) | payer MEDICARE ==
[2025-03-02 15:36] VITALS: BMI 26.4
[~2025-03-21 09:43] MED LIST changes: -ALPRAZolam 0.25 MG TAB PO PRN; -ALPRAZolam 0.5 MG TAB PO PRN; -ASPIRIN 325 MG TAB PO STA; -ATORVASTATIN 80 MG TAB PO STA; -HEPARIN SODIUM,PORCINE (1 ML) 2,500 UNIT in SODIUM CHLORIDE 0.9% 250 ML IRRIGATION PRN; -HEPARIN SODIUM,PORCINE 10,000 UNIT in SODIUM CHLORIDE 0.9% 1,000 ML IRRIGATION PRN; +HYDROmorphone 0.5 MG/0.5 ML SYRINGE IVP PRN; +LIDOCAINE 1% (10MG/ML) FOR IV START INTRADERMA PRN; -NITROGLYCERIN SL TABS 0.4 MG TAB SUBLINGUAL PRN; -SODIUM CHLORIDE 0.9% 1,000 ML in EMPTY BAG 1 BAG IV SCH; +TRANEXAMIC 1,000 MG/100ML-NACL 1,000 MG in SALINE 1 100ML.BAG IVPB PRN; +fentaNYL (PF) 50 MCG/ML 2 ML AMP IV PRN
[2025-03-21] MEDS: IV FLUID CONTINUATION 1,000 ML IV ONE (10:03)
[2025-03-21] MEDS: ONDANSETRON 4 MG/2 ML VIAL IVP ONE (10:36)
[2025-03-21] MEDS: MELOXICAM 7.5 MG TAB PO PRN (10:36)
[2025-03-21] MEDS: GABAPENTIN 300 MG CAP PO PRN (10:36)
[2025-03-21] MEDS: ACETAMINOPHEN TAB 500 MG TAB PO PRN (10:36)
[2025-03-21] MEDS: LACTATED RINGERS 1,000 ML IV SCH (10:36)
[2025-03-21] MEDS: MIDAZOLAM 2 MG/2 ML VIAL IV PRN (11:04)
[2025-03-21] MEDS ORDERED: ONDANSETRON 4 MG/2 ML VIAL IVP PRN (11:07)
[2025-03-21] MEDS ORDERED: NALOXONE 0.4 MG/ML 1 ML VIAL IV PRN (11:07)
[2025-03-21] MEDS ORDERED: MAGNESIUM HYDROXIDE 2,400 MG/30 ML CUP PO PRN (11:07)
[2025-03-21] MEDS ORDERED: HYDROmorphone 0.5 MG/0.5 ML SYRINGE IVP PRN ×3 (11:07)
[2025-03-21] MEDS: ROPIVACAINE 5 MG/ML 30 ML VIAL MISCELLANE ONE ×3 (11:21→12:50)
[2025-03-21] MEDS: LACTATED RINGERS 1,000 ML IV ONE (12:41)
[2025-03-21] MEDS: ceFAZolin 1,000 MG in SODIUM CHLORIDE 0.9% 1,000 ML IRRIGATION ONE (12:41)
--- NOTE | 2025-03-21 12:56 | P.OP ---
Date of Procedure: 03/21/25 Preoperative Diagnosis: Severe osteoarthritis left hip Postoperative Diagnosis: Severe osteoarthritis left hip Procedure(s) Performed: Left total hip arthroplasty with a direct anterior approach Implants: [employer] Nephew Polarstem standard size 0 with a collar [employer] Nephew R3, multi-hole hemispherical acetabular shell, 52 mm [employer] Nephew Reflection 6.5 mm cancellus screw, 20 mm 4 [employer] Nephew R3, XLPE 20 acetabular liner To [employer] Nephew Oxinium femoral head 36 mm, -3 All components were press-fit. The articulation is Oxinium on polyethylene. Anesthesia: spinal Surgeon: Damian Velásquez Radio Time Sales Supervisor #1: Blanca Sierra Estimated Blood Loss (ml): 500 Pathology: none sent Condition: stable Disposition: PACU Indications for Procedure: After failure of conservative treatment we discussed the surgical and nonsurgical treatment options at length. Patient wishes to proceed with a total hip arthroplasty with a direct anterior approach. Complications specific to this procedure were discussed at length, including but not limited to infection, leg length discrepancy, dislocation, nerve injury, and fracture. Covid-19 was also discussed at length with the patient, and they are aware of the current policies and procedures. The patient was given the option of delaying surgery, but they elect to proceed knowing these risks. Patient is aware of all these complications and informed consent was obtained Operative Findings: The operative findings are consistent with severe osteoarthritis of the left hip Description of Procedure: The patient was seen and evaluated in the preoperative area and the consent was reviewed. The operative site was marked with a skin marker. The patient verified the procedure and operative site. A ANAN block was placed by anesthesia in the preoperative area. The patient was then brought to the operating room and given preoperative antibiotics intravenously. 1 g of Tranexamic acid was also given intravenously. A spinal anesthetic was administered by the anesthesia department. The patient was then placed on the Churdan table with the bony prominences well-padded. The hip area was then prepped with a ChloraPrep solution and draped in the usual sterile fashion. A universal timeout was then performed, which confirmed the patient's name, surgical site, ALLERGIES, and procedure being performed on the consent. Next the incision site was located at 1 cm distal and 4 cm lateral to the anterior superior iliac spine. The skin and subcutaneous tissues were sharply incised. Incision was carefully dissected down to the fascia overlying the tensor fascia darrin muscle. This fascia was then incised in line with the muscle fibers. Care was taken to stay laterally in order to avoid injuring the lateral femoral cutaneous nerve. Next, using blunt finger dissection, the tensor fascia darrin muscle was dissected off its investing fascia. The muscle was then carefully retracted laterally with a cobra retractor over the lateral neck of the femur. Next, the circumflex vessels were identified and cauterized using the Aquamantis device. The anterior hip capsule was then exposed. The capsule was then opened and an inverted T fashion. The retractors were then placed intracapsularly. The retractors were maintained intracapsular throughout the procedure. The proximal femur was then visualized. Fluoroscopic x-rays were then taken in order to evaluate the preoperative leg lengths. A small amount of traction was placed on the leg. The femoral neck was then osteotomized at the appropriate level above the lesser trochanter. A small wedge of bone was then removed from the remaining femoral head. Next, using a corkscrew the femoral head was removed from the acetabulum. On gross visual inspection, the femoral head had complete loss of articular cartilage and multiple periarticular osteophytes. The femoral head was then measured. Attention was then turned to the acetabulum. The acetabulum was exposed and any remaining labrum was excised. Sequential reaming of the acetabulum was performed using fluoroscopic guidance until there was a good bed of bleeding cancellus bone. When the appropriate size was reach ed, a trial was then placed. The position and fit of the trial was checked with fluoroscopy. The trial was then removed. Then, using fluoroscopic guidance, the final implant was impacted at 20 of anteversion and 40 of abduction, and fully seated in the acetabulum. 4 screws were then placed in the acetabulum. Again fluoroscopy was used to check position of the screws. Next, the liner was then impacted, with a 20 elevated liner located in the anterior superior quadrant. Component locking was confirmed. Attention was then directed to the femur. With the aid of the Churdan table, the femur was externally rotated to approximately 130, extended, and adducted under the opposite leg. A side hook was then placed under the proximal femur, and the side hook elevator was used to elevate the proximal femur while releasing the capsule. Retractors were then placed. A capsular release was performed, as well as a release of the conjoined tendon, which afforded excellent visualization of the proximal femur. Next, a box osteotome was used to lateralize the proximal femur. A hand candy cutter was then used to locate the femoral canal. Sequential broaching was then performed with appropriate size which afforded excellent fixation in the proximal femur. A trial was then placed with appropriate head and neck, and the hip was gently reduced with the aid of the Churdan table. Fluoroscopy was then used to check position of the components, as well as to evaluate the leg lengths and offset. The leg lengths and offset were measured as closely as possible to ensure stability of the hip. The hip was then gently dislocated and the trials were then removed. Final implants were then impacted and the hip was again reduced. Final fluoroscopic x-rays confirmed that the components were in anatomic position. The leg lengths and offset were measured and were found to coincide with the trial measurements. The hip was also taken through range of motion, and found to be stable. The hip was then copiously irrigated with antibiotic solution with pulsatile lavage. The hip was then irrigated with Irrisept solution. The soft tissues were then injected with a ropivacaine solution. A second dose of 1 g of Tranexamic acid was also given intravenously. The fascia was then closed with 2-0 strata fix suture. The subcutaneous tissue was closed with 3-0 Vicryl. The subcuticular tissue was closed with 3-0 strata fix suture. The skin was then closed with Exofin skin glue. After the glue and dried, and Optifoam silver impregnated dressing was applied. The patient was then transferred to the recovery room in stable condition. The hardware sales assistant MARIA Henriquez was required due to the complexity of surgery, and the need for skilled surgical services manager for positioning, draping, exposure, retraction, and closure of the wound.
--- NOTE | 2025-03-21 13:31 | XR ---
EXAMINATION TYPE: XR Hip Limited LT, FL guidance operating room Intraoperative/procedural fluoroscopi c services were provided. CLINICAL INDICATION:Female, 79 years old with history of LEFT ANTERIOR HIP; , PH FINDINGS: Postsurgical changes from total left hip arthroplasty. Prior right proximal femur intramedullary fixa tion hema and screw identified. No radiographic evidence for complication. Total fluoroscopy time is 37.9 seconds. DAP: 1.3445 Gycm2 Please see the operative/procedural note for further details. [facility], , 03/21/2025 1:28 PM
--- NOTE | 2025-03-21 14:11 | XR ---
EXAMINATION TYPE: XR Hip Limited LT DATE OF EXAM: 03/21/2025 1:53 PM INDICATION: Patient age:Female; 79 years old; Reason for study: Status post hip surgery, assess surgical alignment; PHH. pain COMPARISON: Fluoroscopic images of the left hip from the same date. TECHNIQUE: The left hip was examined in single frontal projection. FINDINGS: Postsurgical changes from left hip arthroplasty. Hardware appears intact. There is expected surrounding soft tissue edema and gas. One of the acetabular screws extends through the acetabulum i nto the pelvis. Medial right mid femoral diaphyseal exostosis or posttraumatic spur. Evaluation is li mited due to only single view. No acute fracture or dislocation. IMPRESSION: Postsurgical changes from left hip arthroplasty. Hardware appears intact with appropriate alignment. [facility], , 03/21/2025 2:08 PM
[2025-03-21] MEDS ORDERED: ALBUTEROL NEBULIZED 2.5 MG/3 ML INHALATION PRN (16:31)
--- NOTE | 2025-03-21 16:31 | P.CONS ---
History of Present Illness - Reason for Consult Consult date: 03/21/25 Medical Management Requesting physician: Damian Velásquez - History of Present Illness History of Presenting Illness: Patient is a very pleasant 79-year-old female with a past medical history of hypertension, hyperlipidemia, hypothyroidism, and osteoarthritis. She is currently admitted to the hospital under orthopedic surgery team status post left total hip arthroplasty completed by Dr. Velásquez secondary to severe osteoarthritis of left hip. We were consulted for medical management throughout hospitalization. Patient seen and fully evaluated in room 470. She was resting comfortably in be d with family at bedside. Patient currently denies having any pain or complaints at this time stating pain is 1 out of 10. She denies having any headache, lightheadedness, dizziness, chest pain, palpitations, shortness of breath, or experiencing any numbness/tingling. Patient is tolerating clear liquids and has not yet been out of bed and has not yet urinated since completion of surgical procedure. Review of systems: Pertinent positives and negatives as discussed in HPI, a complete review of systems was performed and all other systems are negative. Physical exam: Vital signs reviewed and stable. General: Nontoxic, no distress and appears stated age. Derm: Skin warm and dry, normal coloration for ethnicity. Head: Atraumatic, normocephalic and symmetric. Eyes: EOM's intact, no lid lag, and anicteric sclera Mouth: no lip lesions, mucus membranes moist Cardiovascular: regular rate and rhythm with normal S1S2, no murmur, positive posterior tibial pulses bilaterally, and cap refill < 2 seconds. Lungs: Respirations even, regular, and unlabored on room air. Lungs CTA bilaterally, no rhonchi, no rales, no wheezing, and no accessory muscle usage. Abdominal: soft, nontender to palpation, no guarding, no appreciable organomegaly Ext: No gross muscle atrophy, no edema, no contractures. Movement and sensation intact. Dressing in place left lateral hip. Neuro: Speech clear, face symmetrical and CN II-XII grossly intact with no noted focal neuro deficits Psych: Alert and oriented to person, place, time, and situation. Appropriate and pleasant affect. Assessment and Plan of Care: Status post left total hip arthroplasty Management per primary admitting orthopedic surgery team including DVT prophylaxis, pain management, wound/dressing management, weightbearing, and P T/OT. DVT prophylaxis currently with aspirin 325 mg twice daily. Postoperative urinary retention -Bladder scan as needed monitor for postvoid residual/urinary retention If urinary retention continues and patient requires straight catheterization we will plan on starting patient on Flomax 0.4 mg daily. Hypertension Monitor vital signs and continue daily medication regimen with amlodipine 2.5 mg daily, Coreg 6.25 mg twice daily. Hypothyroidism Continue levothyroxine 75 mcg daily. Hyperlipidemia Continue pravastatin 20 mg nightly. Data and imaging reviewed: Reviewed operative report estimated blood loss 500 cc. Vital signs reviewed. Blood pressure 116/68, heart rate 61, respiratory rate 15, temp 97.5 F, and SpO2 of 93% on room air. Preoperative labs reviewed. CBC showing WBC count of 5.82, hemoglobin 12.7, platelet count of 239. Coagulation profile normal findings. BMP was unremarkable with sodium of 138, potassium 4.4, BUN of 18.1, creatinine 0.8, GFR greater than 60, and blood glucose of 99. Hemoglobin A1c was 5.9%. Liver profile unremarkable. Lipid profile normal findings. Thank you for allowing us to participate in the care of this pleasant patient. Do not hesitate to contact us with questions. Someone can be reached from the [facility]ist group all hours of the day at [phone] or via [employer]. Patient was seen independently by Nurse Practitioner. This document was prepared using [employer] dictation software. Please allow for errors in senior associate while rare they do occur. Steve Chacon NP rendered care for this patient independently, reviewed the findings and plan as documented in the note above and agree with plan. I did not physically speak with or examine the patient on this date. Past Medical History Past Medical History: Hyperlipidemia, Hypertension, Osteoarthritis (OA), Pneumonia, Thyroid Disorder Additional Past Medical History / Comment(s): tx for pneumonia 03-03-25-finished antibiotics,OSTEOPOROSIS History of Any Multi-Drug Resistant Organisms: None Reported Past Surgical History: Appendectomy, Heart Catheterization, Hysterectomy, Tonsillectomy Additional Past Surgical History / Comment(s): Titanium rods bilateral femur due to fractures. d & c for missed ab Past Anesthesia/Blood Transfusion Reactions: Blood Transfusion Reaction Additional Past Anesthesia/Blood Transfusion Reaction / Comm: Warm and itchy with hives from transfusion. Past Psychological History: No Psychological Hx Reported Smoking Status: Never smoker Past Alcohol Use History: Rare Past Drug Use History: None Reported - Past Family History Father Family Medical History: Cancer Additional Family Medical History / Comment(s): Skin cancer. Sister(s) Family Medical History: Cancer Additional Family Medical History / Comment(s): Skin cancer. Medications and Allergies Home Medications Medication Instructions Recorded Confirmed Type Pravastatin Sodium [Pravachol] 20 mg PO HS 01/24/15 03/21/25 History carvediloL [Coreg] 6.25 mg PO BID 01/24/15 03/21/25 History Levothyroxine Sodium [Synthroid] 75 mcg PO QAM 04/06/19 03/21/25 History Vit C/E/Zn/Coppr/Lutein/Zeaxan 1 each PO BID 04/06/19 03/21/25 History [Preservision Areds 2 Softgel] Aspirin [Adult Low Dose Aspirin EC] 81 mg PO DAILY 03/07/22 03/21/25 History Ferrous Sulfate [Iron (65 MG 1 tab PO DAILY@1700 11/10/24 03/21/25 History Elemental)] amLODIPine BESYLATE 2.5 mg PO DAILY@1200 11/10/24 03/21/25 History Calcium Carbonate/Vitamin D3 1 each PO BID 03/02/25 03/21/25 History [Calcium 600-D3 20 mcg (800 Unit)] Meloxicam [Mobic] 15 mg PO DAILY PRN 03/02/25 03/21/25 History oxyBUTYnin chloride [Ditropan] 5 mg PO DAILY@1700 03/02/25 03/21/25 History Albuterol Inhaler [Ventolin Hfa 1 - 2 puff INHALATION Q4H PRN 03/14/25 03/21/25 History Inhaler] Aspirin 325 mg PO BID #60 tab 03/21/25 Rx HYDROcodone/APAP 7.5-325MG [[place] 1 - 2 tab PO Q6H PRN #32 tab 03/21/25 Rx 7.5-325] Sennosides [Senokot] 2 tab PO DAILY PRN #60 tablet 03/21/25 Rx Allergies Allergy/AdvReac Type Severity Reaction Status Date / Time No Known Allergies Allergy Verified 03/21/25 10:05 Physical Exam Vitals: Vital Signs Temp Pulse Resp BP Pulse Ox 03/21/25 15:30 56 L 14 121/59 97 03/21/25 15:00 55 L 14 125/60 100 03/21/25 14:45 55 L 14 119/58 100 03/21/25 14:30 58 L 14 111/55 100 03/21/25 14:15 53 L 12 117/59 100 03/21/25 14:00 53 L 12 113/57 100 03/21/25 13:45 56 L 12 113/65 100 03/21/25 13:30 60 12 102/59 100 03/21/25 13:15 67 12 90/55 97 03/21/25 11:09 58 L 14 142/63 97 03/21/25 10:15 97.8 F 60 16 164/75 98 Intake and Output 03/21/25 03/21/25 03/21/25 06:59 14:59 22:59 Intake Total 1351 Output Total 500 Balance 851 Intake: IV 1351 Output: Estimated Blood Loss 500 Other: Weight 61.5 kg 61.5 kg
[2025-03-21] MEDS: SODIUM CHLORIDE 0.9% 1,000 ML IV SCH (17:19)
[2025-03-21] MEDS: FERROUS SULFATE 325 MG TAB PO SCH (17:28)
--- NOTE | 2025-03-21 20:34 | P.ANPRN ---
Procedure Note - Anesthesia - Nerve Block Performed Left Boyd Single Time Out Performed: Yes Date of Procedure: 03/21/25 Procedure Start Time: 11:03 Procedure Stop Time: 11:08 Location of Patient: PreOp Indication: Acute Post-Operative Pain, Requested by Surgeon Sedation Type: Sedate with meaningful contact maintained Preparation: Sterile Prep Position: Supine Needle Types: Pajunk Needle Gauge: 21 Ultrasound used to visualize needle placement: Yes Ultrasound used to observe medication spread: Yes Blood Aspirated: No Pain Paresthesia on Injection Noted: No Resistance on Injection: Normal Image Stored and Saved: Yes Events: Uneventful and Well Tolerated (Ropivacaine 0.5% 20 cc plus dexamethasone 4 mg)
[2025-03-21] MEDS: PRAVASTATIN SODIUM 20 MG TAB PO SCH (20:58)
[2025-03-21] MEDS: HYDROcodone/APAP 7.5-325MG 1 EACH TAB PO PRN (20:58)
[2025-03-21] MEDS: ASPIRIN 325 MG TAB PO SCH (20:58)
[2025-03-21] MEDS: VIT A,C & E-LUTEIN-MINERALS 1 EACH TAB PO SCH (20:58)
[2025-03-21] MEDS: SENNOSIDES-DOCUSATE SODIUM 1 EACH TAB PO SCH (20:59)
[2025-03-22] MEDS: LEVOTHYROXINE 75 MCG TAB PO SCH (06:51)
[2025-03-22] MEDS: HYDROcodone/APAP 7.5-325MG 1 EACH TAB PO PRN (06:51)
[2025-03-22 08:21] LABS: Basophils # (A) 0.01 X 10*3/uL (0.00-0.10); Basophils % (A) 0.1 %; Eosinophils # (A) 0 X 10*3/uL (0.04-0.35); Eosinophils % (A) 0 %; HCT 33.3 % (37.2-46.3); HGB 11.1 g/dL (12.0-15.0); Immature Grans, Automated 0.50 %; Lymphocytes # (A) 1.11 X 10*3/uL (0.90-5.00); Lymphocytes % (A) 11.8 %; MCH 30.5 pg (27.0-32.0); MCHC 33.3 g/dL (32.0-37.0); MCV 91.5 FL (80.0-97.0); Monocytes # (A) 0.65 X 10*3/uL (0.20-1.00); Monocytes % (A) 6.9 %; NRBC Per 100 WBC 0 X 10*3/uL (0.00-0.01); Neutrophils # (A) 7.56 X 10*3/uL (1.80-7.70); Neutrophils % (A) 80.7 %; Platelet Count 205 X 10*3/uL (140-440); RBC 3.64 X 10*6/uL (4.10-5.20); RDW 13.2 % (11.5-14.5); WBC 9.38 X 10*3/uL (4.50-10.00)
[2025-03-22 08:36] LABS: Anion Gap 9.70 mmol/L (4.00-12.00); BUN/Creat Ratio 21.75 Ratio (12.00-20.00); Blood Urea Nitrogen 17.4 mg/dL (9.0-27.0); Calcium 8.7 mg/dL (8.7-10.3); Carbon Dioxide 24.3 mmol/L (21.6-31.8); Chloride 104 mmol/L (96-109); Glucose 139 mg/dL (70-110); Magnesium 1.8 mg/dL (1.5-2.4); Potassium 4.4 mmol/L (3.5-5.5); Sodium 138 mmol/L (135-145)
--- NOTE | 2025-03-22 08:53 | P.PN ---
Subjective Progress Note Date: 03/22/25 This is an 79-year-old female who is status post left total hip arthroplasty. This is postoperative day #1 and patient is seen and evaluated at bedside today. Patient states that her pain is well-controlled, but she has not worked with physical yet today. Patient denies any fever/chills, chest pain, shortness breath, abdominal pain, numbness, weakness or tingling. Objective - Vital Signs Vital signs: Vital Signs Temp 97.4 F L 03/22/25 01:35 Pulse 100 03/22/25 06:53 Resp 17 03/22/25 01:35 BP 118/63 03/22/25 06:53 Pulse Ox 94 L 03/22/25 01:35 FiO2 Intake & Output 03/21/25 03/22/25 03/22/25 18:59 06:59 18:59 Intake Total 1351 Output Total 500 Balance 851 Weight 61.5 kg Intake: IV 1351 Output: Estimated Blood Loss 500 Other: Voiding Method Bedpan # Voids 1 1 - Exam Vital signs are stable. Patient is in no acute distress and is alert and oriented 3. Calf is soft and nontender to palpation. Dressing is clean, dry, and intact. Patient has full foot and ankle motion without pain or difficulty. Sensation intact. Neurovascular status and circulatory status are intact. - Labs CBC & Chem 7: 03/22/25 03:11 03/22/25 03:11 Labs: Abnormal Lab Results - Last 24 Hours (Table) 03/22/25 03/22/25 Range/Units 03:11 03:11 RBC 3.64 L (4.10-5.20) X 10*6/uL Hgb 11.1 L (12.0-15.0) g/dL Hct 33.3 L (37.2-46.3) % Immature Gran # 0.05 H (0.00-0.04) X 10*3/uL Eosinophils # 0 L (0.04-0.35) X 10*3/uL BUN/Creatinine Ratio 21.75 H (12.00-20.00) Ratio Glucose 139 H (70-110) mg/dL Assessment and Plan (1) Osteoarthritis of left hip Current Visit: Yes Status: Acute Code(s): M16.12 - UNILATERAL PRIMARY OSTEOARTHRITIS, LEFT HIP SNOMED Code(s): 281697703901795 (2) S/P total hip arthroplasty Current Visit: Yes Status: Acute Code(s): Z96.649 - PRESENCE OF UNSPECIFIED ARTIFICIAL HIP JOINT SNOMED Code(s): 365781012511 Plan: Continue routine postop care and pain control. Continue anticoagulation with aspirin. Weightbearing as tolerated with a walker. Leave dressing in place for 7 days. Appreciate input from internal medicine. Anticipate discharge home with homecare in the next 24-48 hours.
[2025-03-22] MEDS: amLODIPine 2.5 MG TAB PO SCH (12:12)
--- NOTE | 2025-03-22 15:43 | P.PN ---
Subjective Progress Note Date: 03/22/25 Hospital course: Patient is a very pleasant 79-year-old female with a past medical history of hypertension, hyperlipidemia, hypothyroidism, and osteoarthritis. She is currently admitted to the hospital under orthopedic surgery team status post left total hip arthroplasty completed by Dr. Velásquez secondary to severe osteoarthritis of left hip. We were consulted for medical management throughout hospitalization. Physical exam: Patient was seen and fully evaluated at bedside this morning. She is p ostoperative day 1 and appears to be doing well. Patient does report mild to moderate postoperative pain, but states it is controlled with current pain medication regimen. She reports she has been urinating without any difficulties and her postoperative urinary retention has fully resolved. Patient is tolerating oral intake and denies having any nausea or vomiting. She reports passing flatus. She denies having any numbness or tingling in her extremities. Patient reports she was able to get up with physical therapy with walker but only in her room. She denies having any new needs or concerns at this time. Vital signs reviewed and stable. General: Nontoxic, no distress and appears stated age. Derm: Skin warm and dry, normal coloration for ethnicity. Head: Atraumatic, normocephalic and symmetric. Eyes: EOM's intact, no lid lag, and anicteric sclera Mouth: no lip lesions, mucus membranes moist Cardiovascular: regular rate and rhythm with normal S1S2, no murmur, positive posterior tibial pulses bilaterally, and cap refill < 2 seconds. Lungs: Respirations even, regular, and unlabored on room air. Lungs CTA bilaterally, no rhonchi, no rales, no wheezing, and no accessory muscle usage. Abdominal: soft, nontender to palpation, no guarding, no appreciable organomegaly Ext: No gross muscle atrophy, no edema, no contractures. Movement and sensation intact. Dressing in place left lateral hip. Neuro: Speech clear, face symmetrical and CN II-XII grossly intact with no noted focal neuro deficits Psych: Alert and oriented to person, place, time, and situation. Appropriate and pleasant affect. Assessment and Plan of Care: Status post left total hip arthroplasty Management per primary admitting orthopedic surgery team including DVT prophylaxis, pain management, wound/dressing management, weightbearing, and PT/OT. DVT prophylaxis currently with aspirin 325 mg twice daily. Postoperative urinary retention -Bladder scan as needed monitor for postvoid residual/urinary retention If urinary retention continues and patient requires straight catheterization we will plan on starting patient on Flomax 0.4 mg daily. Hypertension Monitor vital signs and continue daily medication regimen with amlodipine 2.5 mg daily, Coreg 6.25 mg twice daily. Hypothyroidism Continue levothyroxine 75 mcg daily. Hyperlipidemia Continue pravastatin 20 mg nightly. Data and imaging reviewed: Vital signs reviewed. Blood pressure 129/72, heart rate 72, respiratory rate 18, temp 97.4 F, and SpO2 of 95% on room air. Postoperative labs reviewed. CBC showing stable normocytic anemia with hemoglobin of 11.1, only mild postoperative blood loss as preoperative hemoglobi n was 12.7. BMP unremarkable. Blood glucose 139. Calcium 8.7. Magnesium 1.8 Thank you for allowing us to participate in the care of this pleasant patient. Do not hesitate to contact us with questions. Someone can be reached from the [facility] hospitalist group all hours of the day at [phone] or via [employer]. Patient was seen independently by Nurse Practitioner. This document was prepared using [employer] dictation software. Please allow for errors in scientific informatics leader while rare they do occur. Steve Chacon NP rendered care for this patient independently, reviewed the findings and plan as documented in the note above and agree with plan. I did not physically speak with or examine the patient on this date. Objective - Vital Signs Vital signs: Vital Signs Temp 97.4 F L 03/22/25 01:35 Pulse 100 03/22/25 06:53 Resp 17 03/22/25 01:35 BP 118/63 03/22/25 06:53 Pulse Ox 94 L 03/22/25 01:35 FiO2 Intake & Output 03/21/25 03/22/25 03/22/25 18:59 06:59 18:59 Intake Total 1351 Output Total 500 Balance 851 Weight 61.5 kg Intake: IV 1351 Output: Estimated Blood Loss 500 Other: Voiding Method Bedpan # Voids 1 1 - Labs CBC & Chem 7: 03/22/25 03:11 03/22/25 03:11 Labs: Abnormal Lab Results - Last 24 Hours (Table) 03/22/25 Range/Units 03:11 RBC 3.64 L (4.10-5.20) X 10*6/uL Hgb 11.1 L (12.0-15.0) g/dL Hct 33.3 L (37.2-46.3) % Immature Gran # 0.05 H (0.00-0.04) X 10*3/uL Eosinophils # 0 L (0.04-0.35) X 10*3/uL
[2025-03-23 02:27] VITALS: RESP 16
[2025-03-23 09:40] VITALS: BP 95/57; PULSE 72; TEMP 98.3
--- NOTE | 2025-03-23 10:29 | P.DS ---
Providers Expected date of discharge: 03/23/25 Attending physician: Damian Velásquez Consults: 03/21/25 11:07 Consult Physician Routine Consulting Provider: Klarissa Fernandez Consult Reason/Comments: medical management Do you want consulting provider notified?: Yes Primary care physician: Dawit Mesa - Discharge Diagnosis(es) (1) Osteoarthritis of left hip Current Visit: Yes Status: Acute (2) S/P total hip arthroplasty Current Visit: Yes Status: Acute Hospital Course: This is an 79-year-old female with known history of degenerative arthritis of the left hip. The patient presented for evaluation as an outpatient. After discussion and consideration patient elects to proceed with total hip arthroplasty. The patient is seen preoperatively by Dr. Velásquez and medically cleared for surgery by their primary care physician. Patient is admitted to [facility] on 03/21/2025 for total hip arthroplasty. The procedure is performed without complication or sequelae. The patient is doing well postoperatively. Labs and vital signs are stable on day of discharge. On day of discharge patient's hip incision is healing well. There is minimal erythema. There is no drainage noted at this time. There is minimal soft tissue swelling to the hip and thigh. Patient has full foot and ankle motion without difficulty or pain. Calf is soft and nontender to palpation. Neurovascular status to the left lower extremity is intact. Patient is discharged home in good condition. Please see med rec for accurate list of home medications. Plan - Discharge Summary Discharge Rx Participant: No New Discharge Prescriptions: New HYDROcodone/APAP 7.5-325MG [[place] 7.5-325] 1 - 2 tab PO Q6H PRN #32 tab PRN Reason: Pain Aspirin 325 mg PO BID #60 tab Sennosides [Senokot] 2 tab PO DAILY PRN #60 tablet PRN Reason: Constipation Continue Pravastatin Sodium [Pravachol] 20 mg PO HS carvediloL [Coreg] 6.25 mg PO BID Levothyroxine Sodium [Synthroid] 75 mcg PO QAM Vit C/E/Zn/Coppr/Lutein/Zeaxan [Preservision Areds 2 Softgel] 1 each PO BID amLODIPine BESYLATE 2.5 mg PO DAILY@1200 Calcium Carbonate/Vitamin D3 [Calcium 600-D3 20 mcg (800 Unit)] 1 each PO BID Albuterol Inhaler [Ventolin Hfa Inhaler] 1 - 2 puff INHALATION Q4H PRN PRN Reason: sob Ferrous Sulfate [Iron (65 MG Elemental)] 1 tab PO DAILY@1700 oxyBUTYnin chloride [Ditropan] 5 mg PO DAILY@1700 No Action Aspirin [Adult Low Dose Aspirin EC] 81 mg PO DAILY Meloxicam [Mobic] 15 mg PO DAILY PRN PRN Reason: Pain Discharge Medication List Pravastatin Sodium [Pravachol] 20 mg PO HS 01/24/15 [History] carvediloL [Coreg] 6.25 mg PO BID 01/24/15 [History] Levothyroxine Sodium [Synthroid] 75 mcg PO QAM 04/06/19 [History] Vit C/E/Zn/Coppr/Lutein/Zeaxan [Preservision Areds 2 Softgel] 1 each PO BID 04/06/19 [History] Aspirin [Adult Low Dose Aspirin EC] 81 mg PO DAILY 03/07/22 [History] Ferrous Sulfate [Iron (65 MG Elemental)] 1 tab PO DAILY@1700 11/10/24 [History] amLODIPine BESYLATE 2.5 mg PO DAILY@1200 11/10/24 [History] Calcium Carbonate/Vitamin D3 [Calcium 600-D3 20 mcg (800 Unit)] 1 each PO BID 03/02/25 [History] Meloxicam [Mobic] 15 mg PO DAILY PRN 03/02/25 [History] oxyBUTYnin chloride [Ditropan] 5 mg PO DAILY@1700 03/02/25 [History] Albuterol Inhaler [Ventolin Hfa Inhaler] 1 - 2 puff INHALATION Q4H PRN 03/14/25 [History] Aspirin 325 mg PO BID #60 tab 03/21/25 [Rx] HYDROcodone/APAP 7.5-325MG [[place] 7.5-325] 1 - 2 tab PO Q6H PRN #32 tab 03/21/25 [Rx] Sennosides [Senokot] 2 tab PO DAILY PRN #60 tablet 03/21/25 [Rx] Follow up Appointment(s)/Referral(s): [facility] [NON-STAFF] - 1 Week Damian Velásquez DO [Doctor of Osteopathic Medicine] - 04/04/25 9:00 am Activity/Diet/Wound Care/Special Instructions: Weightbearing as tolerated with walker. Leave dressing intact. Dressing may be removed by home care nurse or by patient in 7 days. Then change dressing twice daily until follow up. May shower with initial dressing intact and after removal. If dressing become saturated, please remove. Please take aspirin 325mg twice daily for 30 days to prevent blood clots. Recommend use of compression stockings daily until follow up to help prevent swelling and blood clots. May remove at night before sleeping. [facility] with [facility] and call with any questions or concerns, . Discharge Disposition: HOME WITH HOME HEALTH SERVICES
--- NOTE | 2025-03-23 14:28 | P.PN ---
Subjective Progress Note Date: 03/23/25 Hospital course: Patient is a very pleasant 79-year-old female with a past medical history of hypertension, hyperlipidemia, hypothyroidism, and osteoarthritis. She is currently admitted to the hospital under orthopedic surgery team status post left total hip arthroplasty completed by Dr. Velásquez secondary to severe osteoarthritis of left hip. We were consulted for medical management throughout hospitalization. Physical exam: Patient was seen and fully evaluated at bedside this morning. She is p ostoperative day 2 and appears to be doing well. Patient does report only mild postoperative pain today, but states it is controlled with current pain medication regimen. She reports she has been urinating without any difficulties and tolerating oral intake and denies having any nausea or vomiting. She reports passing flatus. She denies having any numbness or tingling in her extremities. Visiting with her at bedside and denies having any new needs or concerns at this time. Vital signs reviewed and stable. General: Nontoxic, no distress and appears stated age. Derm: Skin warm and dry, normal coloration for ethnicity. Head: Atraumatic, normocephalic and symmetric. Eyes: EOM's intact, no lid lag, and anicteric sclera Mouth: no lip lesions, mucus membranes moist Cardiovascular: regular rate and rhythm with normal S1S2, no murmur, positive posterior tibial pulses bilaterally, and cap refill < 2 seconds. Lungs: Respirations even, regular, and unlabored on room air. Lungs CTA bilaterally, no rhonchi, no rales, no wheezing, and no accessory muscle usage. Abdominal: soft, nontender to palpation, no guarding, no appreciable organomegaly Ext: No gross muscle atrophy, no edema, no contractures. Movement and sensation intact. Dressing in place left lateral hip. Neuro: Speech clear, face symmetrical and CN II-XII grossly intact with no noted focal neuro deficits Psych: Alert and oriented to person, place, time, and situation. Appropriate and pleasant affect. Assessment and Plan of Care: Status post left total hip arthroplasty Management per primary admitting orthopedic surgery team including DVT prophylaxis, pain management, wound/dressing management, weightbearing, and PT/OT. DVT prophylaxis currently with aspirin 325 mg twice daily. Postoperative urinary retention -Bladder scan as needed monitor for postvoid residual/urinary retention If urinary retention continues and patient requires straight catheterization we will plan on starting patient on Flomax 0.4 mg daily. Hypertension Monitor vital signs and continue daily medication regimen with amlodipine 2.5 mg daily, Coreg 6.25 mg twice daily. Hypothyroidism Continue levothyroxine 75 mcg daily. Hyperlipidemia Continue pravastatin 20 mg nightly. Data and imaging reviewed: Vital signs reviewed. Blood pressure slightly soft this morning at 95/57, heart rate 72, respiratory rate 16, temp 98.3 F, and SpO2 of 95% on room air. Postoperative labs reviewed. CBC showing stable normocytic anemia with hemoglobin of 11.1, only mild postoperative blood loss as preoperative hemoglob in was 12.7. BMP unremarkable. Blood glucose 139. Calcium 8.7. Magnesium 1.8 Thank you for allowing us to participate in the care of this pleasant patient. Do not hesitate to contact us with questions. Someone can be reached from the [facility] hospitalist group all hours of the day at [phone] or via [employer]. Patient was seen independently by Nurse Practitioner. This document was prepared using [employer] dictation software. Please allow for errors in hand braille transcriber while rare they do occur. Steve Chacon NP rendered care for this patient independently, reviewed the findin gs and plan as documented in the note above and agree with plan. I did not physically speak with or examine the patient on this date. Objective - Vital Signs Vital signs: Vital Signs Temp 97.7 F 03/23/25 02:00 Pulse 93 03/23/25 06:41 Resp 16 03/23/25 02:00 BP 121/76 03/23/25 06:41 Pulse Ox 95 03/23/25 02:00 FiO2 Intake & Output 03/22/25 03/23/25 03/23/25 18:59 06:59 18:59 Other: Voiding Method Toilet # Voids 1 2 - Labs CBC & Chem 7: 03/22/25 03:11 03/22/25 03:11
== END 2025-03-23 14:49 | disposition home health service (06) ==
LOC: OR 09:43 → 4SSUR 13:07 → OR 03-23 14:49
PROVIDERS: ATTEND Orthopaedic Surgery
DX: M16.12 Unilateral primary osteoarthritis, left hip (principal); G89.18 Other acute postprocedural pain; N99.89 Other postprocedural complications and disorders of genitourinary system; R33.8 Other retention of urine; I11.0 Hypertensive heart disease with heart failure; I50.9 Heart failure, unspecified; E78.5 Hyperlipidemia, unspecified; E03.9 Hypothyroidism, unspecified; I70.0 Atherosclerosis of aorta; M81.0 Age-related osteoporosis without current pathological fracture; D64.9 Anemia, unspecified; M48.061 Spinal stenosis, lumbar region without neurogenic claudication; Z79.890 Hormone replacement therapy; Z79.82 Long term (current) use of aspirin; Z79.899 Other long term (current) drug therapy
CPT/HCPCS: 27130; 64473; 97162; 97166; 80048; 83735; 85025; 73501; C1776; J2250; J0690 ×3; J2405; J2795